=== PATIENT | male | born 1970 | race Caucasian/White ===

== ENCOUNTER 2017-12-22 11:43 | Inpatient (IN) | payer OTHER ==
[2017-12-22 12:14] VITALS: BMI 20.2
[2017-12-22] MEDS ORDERED: MELATONIN 5 MG TABLETS PO PRN (22:00)
--- NOTE | 2017-12-22 22:49 | HP ---
CIWA Score - CIWA Score Nausea/Vomitin Muscle Tremors: 5 Anxiety: 5 Agitation: 5 Paroxysmal Sweats: 3 Orientation: 3-Disoriented Date>2 days Tacttile Disturbances: 3-Moderate Itch/Numb/Burn Auditory Disturbances: 0-None Visual Disturbances: 0-None Headache: 0-None Present CIWA-Ar Total Score: 27 Admission ROS S - HPI Chief Complaint: C/O WITHDRAWAL SX'S. SEEKING DETOX FOR ALCOHOL Allergies/Adverse Reactions: Allergies Allergy/AdvReac Type Severity Reaction Status Date / Time No Known Allergies Allergy Verified 12/22/17 20:34 History of Present Illness: 47 Y.O. MALE WITH ALCOHOLISM HERE FOR DETOX. CLIENT WAS SENT FROM [facility] AFTER BEING BROUGHT THEIR BY THE POLICE FOR ALTERED MENTAL STATUS. CLIENT HAS SINCE BEEN MEDICALLY CLEARED AND SENT FOR DETOX. HE PRESENTS A/O X3 , HAD TO BE REMINDED OF THE DATE. THIS IS CLIENTS FIRST TIME HERE BUT HE IS KNOWN TO OTHER INPATIENT DETOX/ REHAB SERVICES. REPORTS LAST BEING A FEW YEARS AGO. HE IS PRESENTLY HOMELESS. REPORTS LONGEST CLEAN TIME 10 YEARS. DENIES HX/O SEIZURES, AHV, SI/HI. PMHX:DENIES PSYCH: DENIES WILL DRAW AMMONIA LEVEL ED Treatment Course - LABORATORY CBC & Chemistry Diagram: 12/22/17 20:05 12/22/17 20:05 - ADDITIONAL ORDERS Additional order review: Laboratory Results 12/22/17 12/22/17 12/22/17 20:05 20:05 20:05 Sodium 140 Potassium 4.1 Chloride 101 Carbon Dioxide 23 Anion Gap 16 BUN 7 Creatinine 1.1 Creat Clearance w eGFR > 60 Random Glucose 89 Calcium 9.0 Total Bilirubin 0.9 AST 41 H ALT 45 Alkaline Phosphatase 91 Total Protein 7.5 Albumin 4.1 Urine Color Sonya Urine Appearance Cloudy Urine pH 5.0 Ur Specific [place] 1.016 Urine Protein 2+ H Urine Glucose (UA) Negative Urine Ketones Negative Urine Blood 1+ H Urine Nitrite Negative Urine Bilirubin Negative Urine Urobilinogen Negative Ur Leukocyte Esterase Negative Urine WBC (Auto) 3 Urine RBC (Auto) 1 Ur Epithelial Cells Rare Hyaline Casts 43 Urine Mucus Few Opiates Screen Negative Methadone Screen Negative Barbiturate Screen Negative Phencyclidine Screen Negative Ur Amphetamines Screen Negative MDMA (Ecstasy) Screen Negative Benzodiazepines Screen Positive Cocaine Screen Negative U Marijuana (THC) Screen Negative 12/22/17 20:05 RBC 4.25 MCV 98.3 H MCHC 33.3 RDW 15.0 MPV 8.0 Neutrophils % 86.5 H Lymphocytes % 6.7 L Monocytes % 5.9 Eosinophils % 0.0 Basophils % 0.9 <Charlie Blanton - Last Filed: 12/22/17 21:25> - LABORATORY CBC & Chemistry Diagram: 12/22/17 20:05 12/22/17 20:05 <Luisa Purdy - Last Filed: 12/22/17 21:49> Medical Decision Making - Medical Decision Making 12/22/17 19:49 discheleved 47 yo male found drinking water from a lawn spicket and police were called -he is requesting etoh detox 12/22/17 21:46 I spoke with Farrukh winters strand buncher fine wire at [facility] and he agreed that the pt can be sent to [facility] imp alcoholism <Luisa Purdy - Last Filed: 12/22/17 21:49> Exam Limitations: No Limitations - Ebola screening Have you traveled outside of the country in the last 21 days: No Have you had contact with anyone from an Ebola affected area: No Have you been sick,other than usual withdrawal symptoms: No Do you have a fever: No - Review of Systems Constitutional: Chills, Loss of Appetite, Night Sweats EENT: reports: Dental Problems (MISSING TEETH) Respiratory: reports: No Symptoms reported Cardiac: reports: No Symptoms Reported GI: reports: Nausea, Poor Appetite, Vomiting : reports: No Symptoms Reported Musculoskeletal: reports: No Symptoms Reported Integumentary: reports: No Symptoms Reported Neuro: reports: No Symptoms reported Endocrine: reports: No Symptoms Reported Hematology: reports: No Symptoms Reported Psychiatric: reports: Anxious, Depressed Other Systems: Reviewed and Negative Patient History - Patient Medical History Hx Anemia: No Hx Asthma: No Hx Chronic Obstructive Pulmonary Disease (COPD): No Hx Cancer: No Hx Cardiac Disorders: No Hx Congestive Heart Failure: No Hx Hypertension: No Hx Hypercholesterolemia: No Hx Pacemaker: No HX Cerebrovascular Accident: No Hx Seizures: No Hx Dementia: No Hx Diabetes: No Hx Gastrointestinal Disorders: No Hx Liver Disease: No Hx Genitourinary Disorders: No Hx Sexually Transmitted Disorders: No Hx Renal Disease (ESRD): No Hx Thyroid Disease: No Hx Human Immunodeficiency Virus (HIV): No Hx Hepatitis C: No Hx Depression: No Hx Suicide Attempt: No Hx Bipolar Disorder: No Hx Schizophrenia: No Other Medical History: DENIES - Patient Surgical History Past Surgical History: Yes Other Surgical History: INGUINAL (L) HERNIA REPAIR Anesthesia Reaction: No - PPD History Previous Implant?: Yes Documented Results: Negative w/o proof Implanted On Prior [facility] Admission?: No PPD to be Administered?: Yes - Smoking Cessation Smoking history: Current every day smoker Have you smoked in the past 12 months: Yes Aproximately how many cigarettes per day: 5 Cigars Per Day: 0 Hx Chewing Tobacco Use: No Initiated information on smoking cessation: Yes 'Breaking Loose' booklet given: 12/22/17 - Substance & Tx. History Hx Alcohol Use: Yes Hx Substance Use: Yes Substance Use Type: Alcohol Hx Substance Use Treatment: Yes (APPLE) - Substances Abused BEER/VODKA Route: Oral Frequency: Daily Amount used: 1-6 PACK/1PINT Age of first use: 11 Date of Last Use: 12/22/17 Family Disease History - Family Disease History Family History: Denies Admission Physical Exam [facility] - Vital Signs Vital Signs: Vital Signs - 24 hr 12/22/17 12:09 Temperature 98.2 F Pulse Rate 91 H Respiratory 18 Rate Blood Pressure 119/85 - Physical General Appearance: Yes: Disheveled, Moderate Distress, Alcohol on Breath, Tremorous, Sweating, Anxious, Other (MALODUROUS) HEENTM: Yes: EOMI, Normocephalic, Normal Voice, WILLA, Pharynx Normal, Other ( MISSING TEETH, DISCOLORED TEETH) Respiratory: Yes: Chest Non-Tender, Lungs Clear, Normal Breath Sounds, No Respiratory Distress, No Accessory Muscle Use Neck: Yes: No masses,lesions,Nodules, Supple, Trachea in good position Breast: Yes: Breast Exam Deferred Cardiology: Yes: Regular Rhythm, S1, S2, Tachycardia Abdominal: Yes: Normal Bowel Sounds, Non Tender, Flat, Soft Genitourinary: Yes: Other (NO C/O) Back: Yes: Normal Inspection Musculoskeletal: Yes: full range of Motion, Gait Steady, Other (TREMORS) Extremities: Yes: Normal Capillary Refill, Normal Range of Motion, Non-Tender, Tremors Neurological: Yes: Alert, Motor Strength 5/5, Disoriented (TO DATE) Integumentary: Yes: Warm, Other (FLUSHED) Lymphatic: Yes: Within Normal Limits - Diagnostic (1) Alcohol dependence with uncomplicated withdrawal Current Visit: Yes Status: Acute (2) Nicotine dependence Current Visit: Yes Status: Chronic Qualifiers: Nicotine product type: cigarettes Substance use status: uncomplicated Qualified Code(s): F17.210 - Nicotine dependence, cigarettes, uncomplicated (3) Substance induced mood disorder Current Visit: Yes Status: Suspected (4) Homeless Current Visit: Yes Status: Chronic Cleared for Admission BHS - Detox or Rehab [facility] Level of Care: Medically Managed Detox Regimen/Protocol: Librium Claeared for Rehab Admission: No [facility]HS Breath Alcohol Content Breath Alcohol Content: 0.309 Vital Signs - Vital Signs Vital Signs Refused: Yes Temperature: 99.3 F Temperature Source: Oral Pulse Rate: 98 Respiratory Rate: 18 Blood Pressure: 116/76 BP Location: Left Arm Blood Pressure Position: Sitting - Height Height: 5 ft 9 in - Weight Weight: 62.142 kg Weight Measurement Method: Standing Scale Body Mass Index (BMI): 20.2 - Bowel Function Bowel Movement: No Urine Drug Screen - Control Is Test Valid: Yes - Results Drug Screen Negative: No Urine Drug Screen Results: BZO-Benzodiazepines
[2017-12-22] MEDS ORDERED: MAG HYDROX/AL HYDROX/SIMETH 30 ML UNIT-DOSE CUP PO PRN (23:06)
[2017-12-22] MEDS ORDERED: MAGNESIUM HYDROX 2400MG/30ML ORAL SUSPENSION 30 ML CUP PO PRN (23:06)
[2017-12-22] MEDS ORDERED: P-EPHED 60MG/TRIPROLIDI 2.5MG TABLET PO PRN (23:06)
[2017-12-22] MEDS ORDERED: ACETAMINOPHEN 325 MG TABLET (FP) PO PRN (23:06)
[2017-12-22] MEDS ORDERED: MENTHOL/PHENOL 1 EACH UD MM PRN (23:06)
[2017-12-22] MEDS ORDERED: IBUPROFEN 400 MG TABLET (FP) PO PRN (23:06)
[2017-12-22] MEDS ORDERED: chlordiazePOXIDE HCL 25 MG CAPSULE PO PRN (23:06)
[2017-12-22] MEDS ORDERED: hydrOXYzine PAMOATE 50 MG CAPSULE (FP) PO PRN (23:06)
[2017-12-22] MEDS ORDERED: guaiFENesin/D-METHORPHAN HB 10 ML UNIT-DOSE CUPS PO PRN (23:06)
[2017-12-22] MEDS ORDERED: MAGNESIUM CITRATE 300 ML BOTTLE PO PRN (23:06)
[2017-12-22] MEDS ORDERED: NICOTINE POLACRILEX 2 MG GUM BC PRN (23:06)
[2017-12-22] MEDS: chlordiazePOXIDE HCL 25 MG CAPSULE PO SCH (23:43)
[2017-12-23] MEDS: chlordiazePOXIDE HCL 25 MG CAPSULE PO SCH ×4 (05:37→22:32)
--- NOTE | 2017-12-23 09:34 | CONSULT ---
[facility] Psychiatric Consult - Data Date of interview: 12/23/17 Admission source: [facility] Identifying data: This is a 47 years old male, single, unemployed, homeless, with no income, with nom psychiatric hospitalization history, woth long history of Alcohol and Nicotine dependence, reportsing withdrawal symptoms and seeking detox. Substance Abuse History: - Smoking Cessation. Smoking history: Current every day smoker. Have you smoked in the past 12 months: Yes. Aproximately how many cigarettes per day: 5. Cigars Per Day: 0. Hx Chewing Tobacco Use: No. Initiated information on smoking cessation: Yes. 'Breaking Loose' booklet given : 12/22/17. - Substance & Tx. History. Hx Alcohol Use: Yes. Hx Substance Use : Yes. Substance Use Type: Alcohol. Hx Substance Use Treatment: Yes (APPLE) . - Substances Abused. BEER/VODKA. Route: Oral. Frequency: Daily. Amount used: 1-6 PACK/1PINT. Age of first use: 11. Date of Last Use: 12/22/17 Medical History: Denies significant medical problems Psychiatric History: Reports history of depression and anxiety Physical/Sexual Abuse/Trauma History: Denies Additional Comment: Observation. Detox Unit Care Protocol Mental Status Exam - Mental Status Exam Alert and Oriented to: Person Cognitive Function: Fair Patient Appearance: Unkempt Mood: Sad Affect: Flat Patient Behavior: Sedated Speech Pattern: Delayed Voice Loudness: Mildly Soft/Quiet Thought Process: Goal Oriented Thought Disorder: Being Controlled Hallucinations: Denies Suicidal Ideation: Denies Homicidal Ideation: Denies Insight/Judgement: Fair Sleep: Difficulty falling asleep Appetite: Fair Muscle strength/Tone: Mild Hypotonicity Gait/Station: Shuffling Additional Comments: Observation. Detox Unit Care Protocol Psychiatric Findings - Problem List ([place] 1, 2,3) (1) Alcohol dependence with uncomplicated withdrawal Current Visit: Yes Status: Acute (2) Nicotine dependence Current Visit: Yes Status: Chronic Qualifiers: Nicotine product type: cigarettes Substance use status: uncomplicated Qualified Code(s): F17.210 - Nicotine dependence, cigarettes, uncomplicated (3) Substance induced mood disorder Current Visit: Yes Status: Suspected - Initial Treatment Plan Initial Treatment Plan: Observation. Detox Unit Care Protocol
--- NOTE | 2017-12-23 09:36 | PN ---
Xital Signs Vital Signs: Vital Signs - 24 hr 12/22/17 12/22/17 12/23/17 12:09 23:06 00:04 Temperature 98.2 F 99.3 F 98.8 F Pulse Rate 91 H 98 H 93 H Respiratory 18 18 18 Rate Blood Pressure 119/85 116/76 116/72 12/23/17 12/23/17 12/23/17 00:26 03:30 06:39 Temperature 98.4 F Pulse Rate 83 Respiratory 18 18 18 Rate Blood Pressure 129/84 12/23/17 09:04 Temperature 98.4 F Pulse Rate 79 Respiratory 20 Rate Blood Pressure 120/68 CIWA Score - CIWA Score Nausea/Vomitin Muscle Tremors: 5 Anxiety: 5 Agitation: 5 Paroxysmal Sweats: 3 Orientation: 3-Disoriented Date>2 days Tacttile Disturbances: 3-Moderate Itch/Numb/Burn Auditory Disturbances: 0-None Visual Disturbances: 0-None Headache: 0-None Present CIWA-Ar Total Score: 27 Medical/Surgical History - Patient Medical History Hx Anemia: No Hx Asthma: No Hx Chronic Obstructive Pulmonary Disease (COPD): No Hx Cancer: No Hx Cardiac Disorders: No Hx Congestive Heart Failure: No Hx Hypertension: No Hx Hypercholesterolemia: No Hx Pacemaker: No HX Cerebrovascular Accident: No Hx Seizures: No Hx Dementia: No Hx Diabetes: No Hx Gastrointestinal Disorders: No Hx Liver Disease: No Hx Genitourinary Disorders: No Hx Sexually Transmitted Disorders: No Hx Renal Disease (ESRD): No Hx Thyroid Disease: No Hx Human Immunodeficiency Virus (HIV): No Hx Hepatitis C: No Hx Depression: Yes Hx Suicide Attempt: No Hx Bipolar Disorder: No Hx Schizophrenia: No Other Medical History: DENIES - Patient Surgical History Past Surgical History: Yes Hx Neurologic Surgery: No Hx Cataract Extraction: No Hx Cardiac Surgery: No Hx Lung Surgery: No Hx Breast Surgery: No Hx Breast Biopsy: No Hx Abdominal Surgery: No Hx Appendectomy: No Hx Cholecystectomy: No Hx Genitourinary Surgery: No Hx Section: No Hx Orthopedic Surgery: No Other Surgical History: INGUINAL (L) HERNIA REPAIR Anesthesia Reaction: No - Substances Abused BEER/VODKA Route: Oral Frequency: Daily Amount used: 1-6 PACK/1PINT Age of first use: 11 Date of Last Use: 12/22/17 BHS Breath Alcohol Content Breath Alcohol Content: 0.309 Urine Drug Screen - Results Drug Screen Negative: No Urine Drug Screen Results: BZO-Benzodiazepines
[2017-12-23] MEDS: NICOTINE 14 MG/24 HOURS TOPICAL PATCH TD SCH (10:13)
[2017-12-23] MEDS: PRENATAL VITAMINS W/ FOLIC ACID TABLET (FP) PO SCH (10:14)
--- NOTE | 2017-12-23 10:44 | PN ---
S CIWA - CIWA Score Nausea/Vomitin Muscle Tremors: 3 Anxiety: 2 Agitation: 2 Paroxysmal Sweats: 1-Minimal Palms Moist Orientation: 0-Oriented Tacttile Disturbances: 1-Very Mild Itch/Numbness Auditory Disturbances: 1-Very Mild Visual Disturbances: 0-None Headache: 2-Mild CIWA-Ar Total Score: 15 BHS Progress Note (SOAP) Subjective: alert,irritable,anxious,interrupted sleep,tremor Objective: 12/23/17 10:41 Vital Signs Temperature 98.4 F 12/23/17 09:04 Pulse Rate 79 12/23/17 09:04 Respiratory Rate 20 12/23/17 09:04 Blood Pressure 120/68 12/23/17 09:04 O2 Sat by Pulse Oximetry (%) Laboratory Last Values Ammonia 62.4 umol/L (11-32) H 12/23/17 07:00 Assessment: 12/23/17 10:42 withdrawal symptom Plan: continue detox,lactulose 20 grams po tid,repeat cmp,inr,ammonia level in am
[2017-12-23] MEDS: LACTULOSE 20 GM/30 ML UDC (FOR ORAL USE ONLY) PO SCH ×2 (14:53→22:32)
[2017-12-23] MEDS: LOPERAMIDE HCL 2 MG CAPSULE PO PRN ×2 (14:53→20:45)
--- NOTE | 2017-12-23 15:03 | EKG ---
Test Reason : Blood Pressure : / mmHG Vent. Rate : 091 BPM Atrial Rate : 091 BPM P-R Int : 152 ms QRS Dur : 086 ms QT Int : 356 ms P-R-T Axes : 078 079 062 degrees QTc Int : 437 ms NORMAL SINUS RHYTHM NORMAL ECG NO PREVIOUS ECGS AVAILABLE Confirmed by EDELMIRA WATSON, BALWINDER ([id number]) on 12/23/2017 3:03:10 PM Referred By: Confirmed By:BALWINDER HICKEY MD
[2017-12-23] MEDS: THIAMINE HCL 100 MG TABLET (FP) PO SCH (22:33)
[2017-12-24] MEDS: LACTULOSE 20 GM/30 ML UDC (FOR ORAL USE ONLY) PO SCH ×3 (06:06→22:01)
[2017-12-24] MEDS: chlordiazePOXIDE HCL 25 MG CAPSULE PO SCH ×3 (06:06→17:35)
[2017-12-24 10:10] LABS: HEMATOCRIT 41.3 % (35.4-49); HEMOGLOBIN 14.1 GM/dL (11.7-16.9); MCH 33.5 pg (25.7-33.7); MCHC 34.1 g/dl (32.0-35.9); MEAN CELL VOLUME 98.2 fl (80-96); MEAN PLT VOLUME 8.9 fl (7.5-11.1); PLATELET COUNT 231 K/MM3 (134-434); RBC 4.21 M/mm3 (4.00-5.60); RDW 14.9 % (11.9-15.9); WHITE BLOOD COUNT 6.1 K/mm3 (4.0-10.0)
[2017-12-24 10:38] LABS: INR 0.9 (0.83-1.09); PROTHROMBIN TIME (PATIENT) 10.2 SEC (9.7-13.0)
[2017-12-24] MEDS: PRENATAL VITAMINS W/ FOLIC ACID TABLET (FP) PO SCH (10:42)
[2017-12-24] MEDS: NICOTINE 14 MG/24 HOURS TOPICAL PATCH TD SCH (10:43)
[2017-12-24 11:40] LABS: RPR REACTIVE 1:2 (NONREACTIVE)
[2017-12-24 12:30] LABS: CHLORIDE 107 mmol/L (98-107); POTASSIUM 3.8 mmol/L (3.5-5.1); SODIUM 144 mmol/L (136-145)
[2017-12-24 12:55] LABS: ALBUMIN 3.7 g/dl (3.4-5.0); ALK PHOS 81 U/L (45-117); ANION GAP 10 MMOL/L (8-16); BILIRUBIN,TOTAL 1.1 mg/dL (0.2-1.0); BLOOD UREA NITROGEN 9 mg/dL (7-18); CO2 27 mmol/L (21-32); CREATININE 0.6 mg/dL (0.7-1.3); GLUCOSE,RANDOM 84 mg/dL (74-106); SGOT/AST 42 U/L (15-37); SGPT/ALT 43 U/L (12-78); TOT PROT 6.9 g/dl (6.4-8.2)
[2017-12-24 13:20] LABS: TREPONEMA ANTIBODY REACTIVE (NONREACTIVE)
--- NOTE | 2017-12-24 13:55 | PN ---
S CIWA - CIWA Score Nausea/Vomitin Muscle Tremors: 3 Anxiety: 3 Agitation: 2 Paroxysmal Sweats: 1-Minimal Palms Moist Orientation: 0-Oriented Tacttile Disturbances: 1-Very Mild Itch/Numbness Auditory Disturbances: 1-Very Mild Visual Disturbances: 0-None Headache: 2-Mild CIWA-Ar Total Score: 16 BHS Progress Note (SOAP) Subjective: alert,irritable,anxious,interrupted sleep,tremor,poor oral intake Objective: 12/24/17 13:51 Vital Signs Temperature 98.1 F 12/24/17 13:22 Pulse Rate 93 H 12/24/17 13:22 Respiratory Rate 18 12/24/17 13:22 Blood Pressure 111/85 12/24/17 13:22 O2 Sat by Pulse Oximetry (%) Assessment: 12/24/17 13:54 withdrawal symptom Plan: continue detox,high ammonia level on lactulose,history of syphilis treated before,
[2017-12-24] MEDS: THIAMINE HCL 100 MG TABLET (FP) PO SCH (22:01)
[2017-12-24] MEDS: chlordiazePOXIDE 5 MG CAPSULE PO SCH (22:01)
[2017-12-25] MEDS: LACTULOSE 20 GM/30 ML UDC (FOR ORAL USE ONLY) PO SCH ×3 (05:14→22:09)
[2017-12-25] MEDS: chlordiazePOXIDE 5 MG CAPSULE PO SCH ×3 (05:14→17:39)
[2017-12-25] MEDS: PRENATAL VITAMINS W/ FOLIC ACID TABLET (FP) PO SCH (10:37)
[2017-12-25] MEDS: NICOTINE 14 MG/24 HOURS TOPICAL PATCH TD SCH (10:37)
--- NOTE | 2017-12-25 12:26 | PN ---
S Progress Note (SOAP) Subjective: alert,irritable,anxious,interrupted sleep Objective: 12/25/17 12:25 Vital Signs Temperature 98.4 F 12/25/17 11:27 Pulse Rate 79 12/25/17 11:27 Respiratory Rate 20 12/25/17 11:27 Blood Pressure 108/57 12/25/17 11:27 O2 Sat by Pulse Oximetry (%) Assessment: 12/25/17 12:26 withdrawal symptom Plan: continue detox,discharge in am
[2017-12-25] MEDS: THIAMINE HCL 100 MG TABLET (FP) PO SCH (22:07)
[2017-12-25] MEDS: chlordiazePOXIDE HCL 10 MG CAPSULE PO SCH (22:07)
[2017-12-26] MEDS: chlordiazePOXIDE HCL 10 MG CAPSULE PO SCH ×2 (06:24→10:26)
[2017-12-26] MEDS: LACTULOSE 20 GM/30 ML UDC (FOR ORAL USE ONLY) PO SCH (06:25)
[2017-12-26 09:20] VITALS: BP 114/76; PULSE 75; TEMP 97.5
[2017-12-26] MEDS: NICOTINE 14 MG/24 HOURS TOPICAL PATCH TD SCH (10:25)
[2017-12-26] MEDS: PRENATAL VITAMINS W/ FOLIC ACID TABLET (FP) PO SCH (10:25)
--- NOTE | 2017-12-26 10:31 | DS ---
[facility] Detox Discharge Summary Admission Date: 12/22/17 Discharge Date: 12/26/17 - History Present History: Alcohol Dependence Additional Comments: 47 years old male admitted on 12/22/17 for alcohol withdrawal sx completed alcohol detox regimen tolerated well denies alcohol withdrawal sx alert oriented x 3 no acute distress aftercare [facility] - Physical Exam Results Vital Signs: Vital Signs Temperature 97.5 F L 12/26/17 09:18 Pulse Rate 75 12/26/17 09:18 Respiratory Rate 18 12/26/17 09:18 Blood Pressure 114/76 12/26/17 09:18 O2 Sat by Pulse Oximetry (%) Pertinent Admission Physical Exam Findings: alcohol withdrawal sx Vital Signs Temperature 97.5 F L 12/26/17 09:18 Pulse Rate 75 12/26/17 09:18 Respiratory Rate 18 12/26/17 09:18 Blood Pressure 114/76 12/26/17 09:18 O2 Sat by Pulse Oximetry (%) Laboratory Last Values WBC 6.1 K/mm3 (4.0-10.0) 12/24/17 07:30 RBC 4.21 M/mm3 (4.00-5.60) 12/24/17 07:30 Hgb 14.1 GM/dL (11.7-16.9) 12/24/17 07:30 Hct 41.3 % (35.4-49) 12/24/17 07:30 MCV 98.2 fl (80-96) H 12/24/17 07:30 MCH 33.5 pg (25.7-33.7) 12/24/17 07:30 MCHC 34.1 g/dl (32.0-35.9) 12/24/17 07:30 RDW 14.9 % (11.9-15.9) 12/24/17 07:30 Plt Count 231 K/MM3 (134-434) D 12/24/17 07:30 MPV 8.9 fl (7.5-11.1) D 12/24/17 07:30 PT with INR 10.20 SEC (9.7-13.0) 12/24/17 07:30 INR 0.90 (0.83-1.09) 12/24/17 07:30 Sodium 144 mmol/L (136-145) 12/24/17 07:30 Potassium 3.8 mmol/L (3.5-5.1) 12/24/17 07:30 Chloride 107 mmol/L (98-107) 12/24/17 07:30 Carbon Dioxide 27 mmol/L (21-32) 12/24/17 07:30 Anion Gap 10 MMOL/L (8-16) 12/24/17 07:30 BUN 9 mg/dL (7-18) 12/24/17 07:30 Creatinine 0.6 mg/dL (0.7-1.3) L 12/24/17 07:30 Creat Clearance w eGFR > 60 (>60) 12/24/17 07:30 Random Glucose 84 mg/dL (74-106) 12/24/17 07:30 Calcium 9.0 mg/dL (8.5-10.1) 12/24/17 07:30 Total Bilirubin 1.1 mg/dL (0.2-1.0) H 12/24/17 07:30 AST 42 U/L (15-37) H 12/24/17 07:30 ALT 43 U/L (12-78) 12/24/17 07:30 Alkaline Phosphatase 81 U/L (45-117) D 12/24/17 07:30 Ammonia 53.7 umol/L (11-32) H 12/24/17 07:30 Total Protein 6.9 g/dl (6.4-8.2) 12/24/17 07:30 Albumin 3.7 g/dl (3.4-5.0) 12/24/17 07:30 RPR Titer Reactive 1:2 (NONREACTIVE) H 12/23/17 06:10 T.pallidum Ab (MHA) Reactive (NONREACTIVE) 12/23/17 06:10 lab noted health teaching regarding alcohol induced ammonia serum level and liver enzyme level discuss safe sex - Treatment Hospital Course: Detox Protocol Followed, Detoxed Safely, Responded well, Discharged Condition Good, Rehab Referral Accepted Patient has Accepted a Rehab Referral to: [facility] - Medication Discharge Medications: Ambulatory Orders NK [No Known Home Medication] 12/22/17 - Diagnosis (1) Syphilis Current Visit: No Status: Chronic (2) Alcohol dependence with uncomplicated withdrawal Current Visit: Yes Status: Acute (3) Nicotine dependence Current Visit: Yes Status: Acute Qualifiers: Nicotine product type: cigarettes Substance use status: in withdrawal Qualified Code(s): F17.213 - Nicotine dependence, cigarettes, with withdrawal - AMA Did Patient Leave Against Medical Advice: No
== END 2017-12-26 12:46 | disposition other institution (70) | DRG 775 ==
LOC: YASAS 11:43 → Y6N 23:12
PROC: HZ2ZZZZ Detoxification Services for Substance Abuse Treatment (ICD-10-PCS; principal; 2017-12-22)
DX: F10.230 Alcohol dependence with withdrawal, uncomplicated (principal); F17.210 Nicotine dependence, cigarettes, uncomplicated; F19.24 Other psychoactive substance dependence with psychoactive substance-induced mood disorder; R79.89 Other specified abnormal findings of blood chemistry; Z86.19 Personal history of other infectious and parasitic diseases; Z59.0 Homelessness
CPT/HCPCS: 36415; 80053; 82140; 85027; 85610; 86593; 86780; 93005; 93010

== ENCOUNTER 2017-12-26 12:56 | Inpatient (IN) | payer OTHER ==
[2017-12-26 13:30] VITALS: BMI 20.6
[2017-12-26] MEDS ORDERED: ACETAMINOPHEN 325 MG TABLET (FP) PO PRN (13:48)
[2017-12-26] MEDS ORDERED: guaiFENesin/D-METHORPHAN HB 10 ML UNIT-DOSE CUPS PO PRN (13:48)
[2017-12-26] MEDS ORDERED: P-EPHED 60MG/TRIPROLIDI 2.5MG TABLET PO PRN (13:48)
[2017-12-26] MEDS ORDERED: MAG HYDROX/AL HYDROX/SIMETH 30 ML UNIT-DOSE CUP PO PRN (13:48)
[2017-12-26] MEDS ORDERED: LOPERAMIDE HCL 2 MG CAPSULE PO PRN (13:48)
[2017-12-26] MEDS ORDERED: MAGNESIUM CITRATE 300 ML BOTTLE PO PRN (13:48)
[2017-12-26] MEDS ORDERED: MAGNESIUM HYDROX 2400MG/30ML ORAL SUSPENSION 30 ML CUP PO PRN (13:48)
[2017-12-26] MEDS ORDERED: IBUPROFEN 400 MG TABLET (FP) PO PRN (13:48)
[2017-12-26] MEDS ORDERED: hydrOXYzine PAMOATE 50 MG CAPSULE (FP) PO PRN (13:48)
[2017-12-26] MEDS ORDERED: MENTHOL/PHENOL 1 EACH UD MM PRN (13:48)
--- NOTE | 2017-12-26 13:48 | HP ---
TRUONG WATSON Rehab Assess/Revision - Admission History Admitted to Rehab from: [facility] [place] Date of Admission to Rehab: 12/26/17 - Vital signs Vital Signs: Vital Signs Period Temp Pulse Resp BP Sys/Mars Pulse Ox Last 24 Hr 98.3 F 81 19 97/72 - Findings Detox History & Physical reviewed: Yes Concur with findings: Yes Comments/Additional Findings: transferred from detox to rehab admission as per protocol
[2017-12-26] MEDS: THIAMINE HCL 100 MG TABLET (FP) PO SCH (21:56)
[2017-12-26] MEDS: MELATONIN 5 MG TABLETS PO PRN (21:57)
[2017-12-27] MEDS: PRENATAL VITAMINS W/ FOLIC ACID TABLET (FP) PO SCH (10:08)
[2017-12-27] MEDS: NICOTINE 14 MG/24 HOURS TOPICAL PATCH TD SCH (10:09)
[2017-12-27] MEDS: THIAMINE HCL 100 MG TABLET (FP) PO SCH (21:13)
[2017-12-27] MEDS: MELATONIN 5 MG TABLETS PO PRN (21:13)
[2017-12-28] MEDS: NICOTINE 14 MG/24 HOURS TOPICAL PATCH TD SCH (09:49)
[2017-12-28] MEDS: PRENATAL VITAMINS W/ FOLIC ACID TABLET (FP) PO SCH (09:49)
[2017-12-28] MEDS: NICOTINE POLACRILEX 2 MG GUM BUC PRN ×2 (09:50→15:38)
[2017-12-28] MEDS: THIAMINE HCL 100 MG TABLET (FP) PO SCH (21:53)
[2017-12-28] MEDS: MELATONIN 5 MG TABLETS PO PRN (21:53)
[2017-12-29] MEDS: PRENATAL VITAMINS W/ FOLIC ACID TABLET (FP) PO SCH (10:04)
[2017-12-29] MEDS: NICOTINE 14 MG/24 HOURS TOPICAL PATCH TD SCH (10:05)
[2017-12-29] MEDS: NICOTINE POLACRILEX 2 MG GUM BUC PRN ×2 (10:06→14:06)
[2017-12-29] MEDS ORDERED: NICOTINE 14 MG/24 HOURS TOPICAL PATCH TD SCH (13:56)
--- NOTE | 2017-12-29 13:58 | PN ---
S Progress Note Note: Vital Signs Temperature 97.0 F L 12/29/17 07:13 Pulse Rate 70 12/29/17 07:13 Respiratory Rate 18 12/29/17 07:13 Blood Pressure 104/70 12/29/17 07:13 O2 Sat by Pulse Oximetry (%) Patient currently on nicotine patch 14 mg requested increase in dose d/t no improve in nicotine craving. Dose adjusted to 21mg patch. continue to monitor
--- NOTE | 2017-12-29 16:26 | HP ---
Psychiatrist Admission - Data Date of interview: 12/29/17 Admission source: Transfer from [address] [place] [address]. Identifying data: First admission to [facility] for this 47 y/o male, who underwent detoxification treatment for alcohol dependence and transferred to [address] for rehabilitation.Patient is single without dependents, homeless,unemployed and deprived of income. Medical History: Patient endorses good general health.Noted history of left inguinal herniorraphy. Psychiatric History: Patient admits to a remote history of psychiatric hospitalizationaroung age 12-14.Names of facilities not recalled.Initialled diagnosed with ADHD and treated with psychostimulants.Dropped out of psychiatric care during his adolescence.Never re-admitted to a mental institution, as per report.No contact with psychiatrists.Mr Madrigal denies histroy of suicide attempts. Physical/Sexual Abuse/Trauma History: Patient denies. Additional Comment: Substance abuse profile is confirmed by patient in this session.Details in current [facility] report : Smoking history: Current every day smoker. Have you smoked in the past 12 months: Yes. Aproximately how many cigarettes per day: 5. Cigars Per Day: 0. Hx Chewing Tobacco Use: No. Initiated information on smoking cessation: Yes. 'Breaking Loose' booklet given : 12/22/17. - Substance & Tx. History. Hx Alcohol Use: Yes. Hx Substance Use : Yes. Substance Use Type: Alcohol. Hx Substance Use Treatment: Yes (APPLE) . - Substances Abused. BEER/VODKA. Route: Oral. Frequency: Daily. Amount used: 1-6 PACK/1PINT. Age of first use: 11. Date of Last Use: . Urine Drug Screen Results: BZO-Benzodiazepines.Noted on admission to [address] [place] [address]. Vital Signs: Vital Signs - 24 hr 12/29/17 12/29/17 00:30 07:13 Temperature 97.0 F L Pulse Rate 70 Respiratory 16 18 Rate Blood Pressure 104/70 Allergies/Adverse Reactions: Allergies Allergy/AdvReac Type Severity Reaction Status Date / Time No Known Allergies Allergy Verified 12/22/17 20:34 - Substance Abuse/Tx History Hx Alcohol Use: Yes Hx Substance Use: Yes Substance Use Type: Alcohol (consumes 1/2 pint to one pint of vodka daily + six beers X 24 oz. Onset of abuse at age 11.) Hx Substance Use Treatment: Yes Mental Status Exam - Mental Status Exam Alert and Oriented to: Time, Place, Person Cognitive Function: Good Patient Appearance: Well Groomed Mood: Euthymic Affect: Appropriate, Normal Range Patient Behavior: Appropriate, Cooperative Speech Pattern: Clear, Appropriate Voice Loudness: Normal Thought Process: Intact, Goal Oriented Thought Disorder: Not Present Hallucinations: Denies Suicidal Ideation: Denies Homicidal Ideation: Denies Insight/Judgement: Fair Sleep: Poorly, Difficulty falling asleep Appetite: Good Muscle strength/Tone: Normal Gait/Station: Normal Psychiatric Findings - Problem List ([place] 1, 2,3) (1) Alcohol dependence Current Visit: Yes Status: Acute (2) Nicotine dependence Current Visit: Yes Status: Acute Qualifiers: Nicotine product type: cigarettes Substance use status: in withdrawal Qualified Code(s): F17.213 - Nicotine dependence, cigarettes, with withdrawal (3) Insomnia Current Visit: Yes Status: Acute - Initial Treatment Plan Initial Treatment Plan: Psychoeducation.Sleep hygiene.Supportive + group therapy.Trazodone 100 mg po hs (patient's specific request).Made aware of the risk of priapism.Mr Madrigal agrees to this careplan.Observation.
[2017-12-29] MEDS: THIAMINE HCL 100 MG TABLET (FP) PO SCH (21:27)
[2017-12-29] MEDS: traZODone HCL 100 MG TABLET (FP) PO SCH (21:27)
[2017-12-30] MEDS: NICOTINE POLACRILEX 2 MG GUM BUC PRN ×2 (06:10→14:35)
[2017-12-30] MEDS: NICOTINE 21 MG/24 HOURS TOPICAL PATCH TD SCH (09:43)
[2017-12-30] MEDS: PRENATAL VITAMINS W/ FOLIC ACID TABLET (FP) PO SCH (09:43)
--- NOTE | 2017-12-30 18:40 | PN ---
S Progress Note Note: Vital Signs Temperature 97.7 F 12/30/17 06:52 Pulse Rate 65 12/30/17 06:52 Respiratory Rate 18 12/30/17 06:52 Blood Pressure 103/65 12/30/17 06:52 O2 Sat by Pulse Oximetry (%) elevated ammonia levels 53.7, asymptomatic start lactulose TID repeat ammonia 01/01/18 increase fluids continue to monitor
[2017-12-30] MEDS: traZODone HCL 100 MG TABLET (FP) PO SCH (21:26)
[2017-12-30] MEDS: THIAMINE HCL 100 MG TABLET (FP) PO SCH (21:26)
[2017-12-30] MEDS: LACTULOSE 20 GM/30 ML UDC (FOR ORAL USE ONLY) PO SCH (21:27)
[2017-12-31] MEDS: NICOTINE 21 MG/24 HOURS TOPICAL PATCH TD SCH (09:56)
[2017-12-31] MEDS: LACTULOSE 20 GM/30 ML UDC (FOR ORAL USE ONLY) PO SCH ×4 (09:56→22:03)
[2017-12-31] MEDS: PRENATAL VITAMINS W/ FOLIC ACID TABLET (FP) PO SCH (09:57)
[2017-12-31] MEDS: NICOTINE POLACRILEX 2 MG GUM BUC PRN ×2 (10:02→12:48)
--- NOTE | 2017-12-31 15:37 | PN ---
[facility] Progress Note Note: Vital Signs Temperature 97.3 F L 12/31/17 07:14 Pulse Rate 85 12/31/17 07:14 Respiratory Rate 18 12/31/17 07:14 Blood Pressure 93/62 12/31/17 07:14 O2 Sat by Pulse Oximetry (%) patient c/o of rash on the left arm after he had blood drawn yesterday Patient Aox3 no distress no adventitious break sounds skin intact, + mild erythematous rash on left anticubital fossa full ROM ambulating in the unit allergic dermatitis Plan: TP hydrocortise increases fluids continue to monitor
[2017-12-31] MEDS: THIAMINE HCL 100 MG TABLET (FP) PO SCH (22:03)
[2017-12-31] MEDS: traZODone HCL 100 MG TABLET (FP) PO SCH (22:03)
[2017-12-31] MEDS: HYDROCORTISONE 1% TOPICAL OINT 30 GM TUBE TP PRN (22:04)
[2018-01-01] MEDS: PRENATAL VITAMINS W/ FOLIC ACID TABLET (FP) PO SCH (10:11)
[2018-01-01] MEDS: LACTULOSE 20 GM/30 ML UDC (FOR ORAL USE ONLY) PO SCH ×4 (10:12→22:04)
[2018-01-01] MEDS: NICOTINE 21 MG/24 HOURS TOPICAL PATCH TD SCH (10:12)
[2018-01-01] MEDS: NICOTINE POLACRILEX 2 MG GUM BUC PRN ×3 (10:13→15:42)
[2018-01-01] MEDS: THIAMINE HCL 100 MG TABLET (FP) PO SCH (22:04)
[2018-01-01] MEDS: traZODone HCL 100 MG TABLET (FP) PO SCH (22:04)
--- NOTE | 2018-01-02 07:55 | PN ---
[facility] Progress Note Note: Lab Review Ammonia level on 01/01 55.4, levels are trending down from 62.4 on 12/23 to 53.7 on 12/24. He was previously on lactulose 20ml PO TID that has been discontinued. He is asymptomatic. Repeat level on 01/04
[2018-01-02] MEDS: PRENATAL VITAMINS W/ FOLIC ACID TABLET (FP) PO SCH (09:56)
[2018-01-02] MEDS: LACTULOSE 20 GM/30 ML UDC (FOR ORAL USE ONLY) PO SCH ×4 (09:56→22:16)
[2018-01-02] MEDS: NICOTINE 21 MG/24 HOURS TOPICAL PATCH TD SCH (09:56)
[2018-01-02] MEDS: NICOTINE POLACRILEX 2 MG GUM BUC PRN ×2 (09:58→12:53)
[2018-01-02] MEDS: THIAMINE HCL 100 MG TABLET (FP) PO SCH (22:16)
[2018-01-02] MEDS: MELATONIN 5 MG TABLETS PO PRN (22:16)
[2018-01-02] MEDS: traZODone HCL 100 MG TABLET (FP) PO SCH (22:16)
[2018-01-03] MEDS: NICOTINE 21 MG/24 HOURS TOPICAL PATCH TD SCH (09:44)
[2018-01-03] MEDS: LACTULOSE 20 GM/30 ML UDC (FOR ORAL USE ONLY) PO SCH ×4 (09:44→21:57)
[2018-01-03] MEDS: PRENATAL VITAMINS W/ FOLIC ACID TABLET (FP) PO SCH (09:44)
[2018-01-03] MEDS: NICOTINE POLACRILEX 2 MG GUM BUC PRN (09:45)
[2018-01-03] MEDS: HYDROCORTISONE 1% TOPICAL OINT 30 GM TUBE TP PRN (14:02)
[2018-01-03] MEDS: THIAMINE HCL 100 MG TABLET (FP) PO SCH (21:57)
[2018-01-03] MEDS: MELATONIN 5 MG TABLETS PO PRN (21:57)
[2018-01-03] MEDS: traZODone HCL 100 MG TABLET (FP) PO SCH (21:57)
[2018-01-04] MEDS: NICOTINE 21 MG/24 HOURS TOPICAL PATCH TD SCH (10:08)
[2018-01-04] MEDS: PRENATAL VITAMINS W/ FOLIC ACID TABLET (FP) PO SCH (10:08)
[2018-01-04] MEDS: LACTULOSE 20 GM/30 ML UDC (FOR ORAL USE ONLY) PO SCH ×2 (10:08→14:43)
[2018-01-04] MEDS: NICOTINE POLACRILEX 2 MG GUM BUC PRN ×2 (10:09→14:44)
--- NOTE | 2018-01-04 14:50 | PN ---
S Progress Note Note: Vital Signs Temperature 97.8 F 01/04/18 07:06 Pulse Rate 77 01/04/18 07:06 Respiratory Rate 18 01/04/18 07:06 Blood Pressure 92/59 01/04/18 07:06 O2 Sat by Pulse Oximetry (%) Laboratory Last Values Ammonia 19.48 umol/L (11-32) 01/04/18 08:30 Patient was currently treated for elevated ammonia levels. Last results 01/04/18 are WNL. Patient asymptomatic. D/c Lactulose. increase fluids Patient advise to follow up with primary care provider upon discharge Continue to monitor
[2018-01-04] MEDS: traZODone HCL 100 MG TABLET (FP) PO SCH (21:38)
[2018-01-04] MEDS: MELATONIN 5 MG TABLETS PO PRN (21:38)
[2018-01-04] MEDS: THIAMINE HCL 100 MG TABLET (FP) PO SCH (21:38)
[2018-01-05] MEDS: NICOTINE 21 MG/24 HOURS TOPICAL PATCH TD SCH (10:06)
[2018-01-05] MEDS: PRENATAL VITAMINS W/ FOLIC ACID TABLET (FP) PO SCH (10:06)
[2018-01-05] MEDS: NICOTINE POLACRILEX 2 MG GUM BUC PRN ×2 (10:08→14:09)
[2018-01-05] MEDS: THIAMINE HCL 100 MG TABLET (FP) PO SCH (22:05)
[2018-01-05] MEDS: traZODone HCL 100 MG TABLET (FP) PO SCH (22:05)
[2018-01-06] MEDS: NICOTINE 21 MG/24 HOURS TOPICAL PATCH TD SCH (10:20)
[2018-01-06] MEDS: PRENATAL VITAMINS W/ FOLIC ACID TABLET (FP) PO SCH (10:20)
[2018-01-06] MEDS: NICOTINE POLACRILEX 2 MG GUM BUC PRN ×2 (10:21→13:34)
[2018-01-06] MEDS: traZODone HCL 100 MG TABLET (FP) PO SCH (21:58)
[2018-01-06] MEDS: THIAMINE HCL 100 MG TABLET (FP) PO SCH (21:58)
[2018-01-06] MEDS: MELATONIN 5 MG TABLETS PO PRN (21:59)
[2018-01-07] MEDS: HYDROCORTISONE 1% TOPICAL OINT 30 GM TUBE TP PRN (10:15)
[2018-01-07] MEDS: NICOTINE POLACRILEX 2 MG GUM BUC PRN ×3 (10:15→17:34)
[2018-01-07] MEDS: NICOTINE 21 MG/24 HOURS TOPICAL PATCH TD SCH (10:15)
[2018-01-07] MEDS: PRENATAL VITAMINS W/ FOLIC ACID TABLET (FP) PO SCH (10:15)
[2018-01-07] MEDS: MELATONIN 5 MG TABLETS PO PRN (21:44)
[2018-01-07] MEDS: THIAMINE HCL 100 MG TABLET (FP) PO SCH (21:44)
[2018-01-07] MEDS: traZODone HCL 100 MG TABLET (FP) PO SCH (21:44)
--- NOTE | 2018-01-08 06:39 | PN ---
Psychiatric Progress Note Vital Signs: Vital Signs Period Temp Pulse Resp BP Sys/Mars Pulse Ox Last 24 Hr 98 F 90 18-18 104/70 Date of Session: 01/08/18 Chief Complaint:: Discharge Note HPI: Patient addressing Alcohol Dependence comorbid with Nicotine Dependence and Alcohol-Induced Sleep Disorder Current Medications: Active Medications Generic Name Dose Route Start Last Admin Trade Name Freq PRN Reason Stop Dose Admin Al Hydroxide/Mg Hydroxide 30 ml 12/26/17 13:48 Mylanta Oral Suspension - PO Q6H PRN DYSPEPSIA Eucalyptus/Menthol/Phenol/Sorbitol 1 each 12/26/17 13:48 Cepastat Lozenge - MM Q4H PRN SORE THROAT Guaifenesin 10 ml 12/26/17 13:48 Robitussin Dm - PO Q6H PRN COUGH Hydrocortisone 1 applic 12/31/17 15:35 01/07/18 10:15 Hytone 1% Ointment - TP 1 applic DAILY PRN Administration FOR ITCHING Hydroxyzine Pamoate 50 mg 12/26/17 13:48 Vistaril - PO Q4H PRN AGITATION Ibuprofen 400 mg 12/26/17 13:48 Motrin - PO Q6H PRN Pain Level 4-6 Loperamide HCl 4 mg 12/26/17 13:48 Imodium - PO Q6H PRN DIARRHEA Magnesium Citrate 300 ml 12/26/17 13:48 Citroma - PO Q48H PRN CONSTIPATION Magnesium Hydroxide 30 ml 12/26/17 13:48 Milk Of Magnesia - PO DAILY PRN CONSTIPATION Melatonin 5 mg 12/26/17 22:00 01/07/18 21:44 Melatonin PO 5 mg HS PRN Administration INSOMNIA Nicotine 21 mg 12/30/17 10:00 01/07/18 10:15 Nicoderm Patch - TD 21 mg DAILY PATRICIA Administration Nicotine Polacrilex 2 mg 12/26/17 13:48 01/07/18 17:34 Nicorette Gum - BUC 2 mg Q2H PRN Administration NICOTINE REPLACEMENT RX Multivit/Folic Acid/Iron 1 tab 12/27/17 10:00 01/07/18 10:15 Vitamins (Sjr) - PO 1 tab DAILY PATRICIA Administration Pseudoephedrine/Triprolidine 1 combo 12/26/17 13:48 Actifed - PO TID PRN NASAL CONGESTION Thiamine HCl 100 mg 12/26/17 22:00 01/07/18 21:44 Vitamin B1 - PO 100 mg HS PATIRCIA Administration Trazodone HCl 100 mg 12/29/17 22:00 01/07/18 21:44 Desyrel - PO 100 mg HS PATRICIA Administration Current Side Effect: No Lab tests ordered: Yes Lab tests reviewed: Yes Provider note:: Patient has completed this program today. 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 Told designer/writer that from his participation in this program, he has learned the importance of making meetings and have a sponsor. He responded well to Trazadone 100 mg po HS. Script for 30 days supply of medication is electronically transmitted to [facility] at [address] [place] [address]. He is stable for discharge today Total face to face time:: 35 Mental Status Exam - Mental Status Exam Alert and Oriented to: Time, Place, Person Cognitive Function: Fair Patient Appearance: Well Groomed Mood: Hopeful, Euthymic Affect: Appropriate Patient Behavior: Cooperative Speech Pattern: Clear Voice Loudness: Normal Thought Process: Intact, Goal Oriented Thought Disorder: Not Present Hallucinations: Denies Suicidal Ideation: Denies Homicidal Ideation: Denies Insight/Judgement: Fair Sleep: Fair Appetite: Good Muscle strength/Tone: Normal Gait/Station: Normal Psychiatric Treatment Plan - Problem List (1) Alcohol dependence Current Visit: Yes (2) Nicotine dependence Current Visit: Yes Qualifiers: Nicotine product type: cigarettes Substance use status: in withdrawal Qualified Code(s): F17.213 - Nicotine dependence, cigarettes, with withdrawal (3) Alcohol-induced sleep disorder Current Visit: Yes Initial treatment plan: Patient is discharged today and referred to [facility] in [place] for room service manager residential treatment
[2018-01-08 06:56] VITALS: BP 105/65; PULSE 69; TEMP 97.9
== END 2018-01-08 08:45 | disposition home or self-care (01) | DRG 58 ==
LOC: YASAS 12:56 → Y3W 12:57
PROVIDERS: ADMIT Psychiatry & Neurology Psychiatry; ATTEND Psychiatry & Neurology Psychiatry
PROC: HZ42ZZZ Group Counseling for Substance Abuse Treatment, Cognitive-Behavioral (ICD-10-PCS; principal; 2017-12-26)
DX: F10.282 Alcohol dependence with alcohol-induced sleep disorder (principal); F17.210 Nicotine dependence, cigarettes, uncomplicated; G47.00 Insomnia, unspecified; R21 Rash and other nonspecific skin eruption; Z59.0 Homelessness
CPT/HCPCS: 82140

== ENCOUNTER 2018-12-10 10:17 | Inpatient (IN) | payer OTHER ==
[2018-12-10 11:28] VITALS: BMI 19.8
--- NOTE | 2018-12-10 12:34 | HP ---
CIWA Score Nausea/Vomitin Muscle Tremors: 3 Anxiety: 3 Agitation: 3 Paroxysmal Sweats: 1-Minimal Palms Moist Orientation: 0-Oriented Tacttile Disturbances: 1-Very Mild Itch/Numbness Auditory Disturbances: 0-None Visual Disturbances: 0-None Headache: 2-Mild CIWA-Ar Total Score: 15 - Admission Criteria OASAS Guidelines: Admission for Medically Managed Detox: Requires at least one of the followin. CIWA greater than 12 2. Seizures within the past 24 hours 3. Delirium tremens within the past 24 hours 4. Hallucinations within the past 24 hours 5. Acute intervention needed for co occurring medical disorder 6. Acute intervention needed for co occurring psychiatric disorder 7. Severe withdrawal that cannot be handled at a lower level of care (continued vomiting, continued diarrhea, abnormal vital signs) requiring intravenous medication and/or fluids 8. Admission ROS S - HPI Chief Complaint: i need help to stop srinking alcohol Allergies/Adverse Reactions: Allergies Allergy/AdvReac Type Severity Reaction Status Date / Time No Known Allergies Allergy Verified 12/10/18 11:22 History of Present Illness: this 48 years old male with alcohol dependence,seeking help to stop drinking, seen in [facility], [place], operated by [facility] last night receiving iv and medication. multiple admissions in detox and rehab last [facility] 12/22/18 to 12/26/17 rehab 12/26/17 to 01/08/18 alcohol related seizure i 2014 live [facility] nicotine dependence 1 pack/day,would like to have nicotine patch weight loss insomnia longest period of sobriety 10 years from 2001 to 2011 living in the sn[place] Exam Limitations: No Limitations - Ebola screening Have you traveled outside of the country in the last 21 days: No (N) Have you had contact with anyone from an Ebola affected area: No Do you have a fever: No - Review of Systems Constitutional: Loss of Appetite, Malaise, Night Sweats, Changes in sleep, Weakness, Unintentional Wgt. Loss EENT: reports: Nose Congestion Respiratory: reports: No Symptoms reported Cardiac: reports: No Symptoms Reported GI: reports: Nausea, Poor Appetite, Abdominal cramping : reports: No Symptoms Reported Musculoskeletal: reports: Back Pain, Muscle Pain Integumentary: reports: Dryness Neuro: reports: Headache, Tremors Endocrine: reports: No Symptoms Reported Hematology: reports: No Symptoms Reported Psychiatric: reports: No Sypmtoms Reported, Judgement Intact, Mood/Affect Appropiate, Orientated x3, other Other Systems: Reviewed and Negative Patient History - Patient Medical History Hx Anemia: No Hx Asthma: No Hx Chronic Obstructive Pulmonary Disease (COPD): No Hx Cancer: No Hx Cardiac Disorders: No Hx Congestive Heart Failure: No Hx Hypertension: No Hx Hypercholesterolemia: No Hx Pacemaker: No HX Cerebrovascular Accident: No Hx Seizures: No Hx Dementia: No Hx Diabetes: No Hx Gastrointestinal Disorders: No Hx Liver Disease: No Hx Genitourinary Disorders: No Hx Sexually Transmitted Disorders: No Hx Renal Disease (ESRD): No Hx Thyroid Disease: No Hx Human Immunodeficiency Virus (HIV): No (last 12/12 negative) Hx Hepatitis C: No Hx Depression: Yes (no medication) Hx Suicide Attempt: No Hx Bipolar Disorder: No Hx Schizophrenia: No Other Medical History: no suicidal,no homicidal - Patient Surgical History Past Surgical History: Yes Hx Neurologic Surgery: No Hx Cataract Extraction: No Hx Cardiac Surgery: No Hx Lung Surgery: No Hx Breast Surgery: No Hx Breast Biopsy: No Hx Abdominal Surgery: No Hx Appendectomy: No Hx Cholecystectomy: No Hx Genitourinary Surgery: No Hx Section: No Hx Orthopedic Surgery: No Other Surgical History: INGUINAL (L) HERNIA REPAIR LAST 2013 Anesthesia Reaction: No - PPD History Previous Implant?: Yes Documented Results: Negative w/proof Date: 12/24/17 Results: 0 MM PPD to be Administered?: No - Smoking Cessation Smoking history: Current some day smoker Have you smoked in the past 12 months: Yes Aproximately how many cigarettes per day: 10 Cigars Per Day: 0 Hx Chewing Tobacco Use: No Initiated information on smoking cessation: Yes 'Breaking Loose' booklet given: 12/10/18 - Substance & Tx. History Hx Alcohol Use: Yes Hx Substance Use: No Substance Use Type: Alcohol Hx Substance Use Treatment: Yes ([facility] 12/02/17 to 12/26/17,rehab 12/26/17 to 01/08) - Substances abused Alcohol Substance route: Oral Frequency: Daily Amount used: 6 pack of beer 24oz and pint of vodka Age of first use: 11 Date of last use: 12/10/18 Family Disease History - Family Disease History Family History: Denies Admission Physical Exam BHS - Vital Signs Vital Signs: Vital Signs - 24 hr 12/10/18 11:21 Temperature 98.0 F Pulse Rate 99 H Respiratory 18 Rate Blood Pressure 149/90 - Physical General Appearance: Yes: Moderate Distress, Tremorous, Irritable, Sweating, Anxious HEENTM: Yes: Normal ENT Inspection, WILLA, Pharynx Normal Respiratory: Yes: Within Normal Limits, Lungs Clear, Normal Breath Sounds Neck: Yes: Within Normal Limits, Supple, Trachea in good position Breast: Yes: Within Normal Limits Cardiology: Yes: Within Normal Limits, Regular Rhythm, Regular Rate, S1, S2 Abdominal: Yes: Within Normal Limits, Normal Bowel Sounds, Non Tender, Soft, Surgical Scar Genitourinary: Yes: Within Normal Limits Back: Yes: Muscle Spasm Musculoskeletal: Yes: full range of Motion, Back pain, Muscle Pain Extremities: Yes: Tremors Neurological: Yes: 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 intact, Alert, Motor Strength 5/5 Integumentary: Yes: Dry, Other (abrasion in both hands) Lymphatic: Yes: Within Normal Limits - Diagnostic (1) Alcohol dependence with uncomplicated withdrawal Current Visit: Yes Status: Acute (2) History of syphilis Current Visit: Yes Status: Acute (3) Insomnia Current Visit: No Status: Acute (4) Nicotine dependence Current Visit: Yes Status: Chronic Qualifiers: Nicotine product type: cigarettes Substance use status: in withdrawal Qualified Code(s): F17.213 - Nicotine dependence, cigarettes, with withdrawal (5) Homeless Current Visit: No Status: Chronic (6) Insomnia secondary to depression with anxiety Current Visit: Yes Status: Acute (7) Abrasion of hand, right Current Visit: Yes Status: Acute (8) Weight loss Current Visit: Yes Status: Acute (9) Alcohol related seizure Current Visit: Yes Status: Acute Cleared for Admission [facility] - Detox or Rehab [facility] Level of Care: Medically Managed Detox Regimen/Protocol: Librium Breathalyzer - Breathalyzer Breathalyzer: 0 Urine Drug Screen - Test Device Lot number: [id number] Expiration date: 09/24/20 - Control Is test valid?: Yes - Results Drug screen NEGATIVE: No Urine drug screen results: BZO-Benzodiazepines Inpatient Rehab Admission - Rehab Decision to Admit Inpatient rehab admission?: No
[2018-12-10] MEDS ORDERED: BISMUTH SUBSALICYLATE 524 MG/30 ML UD PO PRN (12:44)
[2018-12-10] MEDS ORDERED: MAGNESIUM CITRATE 300 ML BOTTLE PO PRN (12:44)
[2018-12-10] MEDS ORDERED: MAGNESIUM HYDROX 2400MG/30ML ORAL SUSPENSION 30 ML CUP PO PRN (12:44)
[2018-12-10] MEDS ORDERED: IBUPROFEN 400 MG TABLET (FP) PO PRN (12:44)
[2018-12-10] MEDS ORDERED: METHOCARBAMOL 500 MG TABLET PO PRN (12:44)
[2018-12-10] MEDS ORDERED: hydrOXYzine PAMOATE 25 MG CAPSULE (FP) PO PRN (12:44)
[2018-12-10] MEDS ORDERED: MAG HYDROX/AL HYDROX/SIMETH 30 ML UNIT-DOSE CUP PO PRN (12:44)
[2018-12-10] MEDS ORDERED: ACETAMINOPHEN 325 MG TABLET (FP) PO PRN (12:44)
[2018-12-10] MEDS ORDERED: MENTHOL/PHENOL 1 EACH UD MM PRN (12:44)
[2018-12-10] MEDS: chlordiazePOXIDE HCL 25 MG CAPSULE PO PRN (14:17)
[2018-12-10] MEDS: NICOTINE 21 MG/24 HOURS TOPICAL PATCH TD SCH (14:17)
[2018-12-10 15:22] LABS: ALBUMIN 3.9 g/dl (3.4-5.0); BILIRUBIN,TOTAL 1.5 mg/dL (0.2-1); BLOOD UREA NITROGEN 4.8 mg/dL (7-18); CALCIUM 8.8 mg/dL (8.5-10.1); CREATININE 0.7 mg/dL (0.55-1.3); POTASSIUM 3.8 mmol/L (3.5-5.1); TOT PROT 7.1 g/dl (6.4-8.2)
[2018-12-10 15:24] LABS: HEMATOCRIT 37.7 % (35.4-49); HEMOGLOBIN 12.9 GM/dL (11.7-16.9); MCH 33.9 pg (25.7-33.7); MCHC 34.3 g/dl (32.0-35.9); MEAN CELL VOLUME 98.9 fl (80-96); MEAN PLT VOLUME 9.1 fl (7.5-11.1); PLATELET COUNT 193 K/MM3 (134-434); RBC 3.81 M/mm3 (4.00-5.60); WHITE BLOOD COUNT 6.5 K/mm3 (4.0-10.0)
--- NOTE | 2018-12-10 17:06 | CONSULT ---
[facility] Psychiatric Consult - Data Date of interview: 12/10/18 Admission source: [facility] Identifying data: Readmission to [facility] for this 48 y/o male, self- referred for detoxification treatment (alcohol withdrawal). 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 Substance Abuse History: Confirmed by patient. Details in current [facility] report as follows : Smoking history: Current some day smoker. Have you smoked in the past 12 months: Yes. Aproximately how many cigarettes per day: 10. Cigars Per Day: 0. Hx Chewing Tobacco Use: No. Initiated information on smoking cessation : Yes. 'Breaking Loose' booklet given: 12/10/18. - Substance & Tx. History. Hx Alcohol Use: Yes. Hx Substance Use: No. Substance Use Type: Alcohol. Hx Substance Use Treatment: Yes ([facility] 12/02/17 to 12/26/17,rehab 12/26/17 to 01/08/18 ). - Substances abused. Alcohol. Substance route: Oral. Frequency: Daily. Amount used: 6 pack of beer 24oz and pint of vodka. Age of first use: 11. Date of last use: 12/10/18 Medical History: Remarkable for history of left inguinal herniorraphy. Psychiatric History: In thius interview, the patient denies history of psychiatric hospitalizations, suicide attempts or contact with psychiatric OPD care providers. Not concordant with statements made at a preveious encounter with this medical underwriter, as evidenced in the following : " history of psychiatric hospitalizations aroung age 12-14. Names of facilities not recalled. Initialled diagnosed with ADHD and treated with psychostimulants. Dropped out of psychiatric care during his adolescence. Never re-admitted to a mental institution, as per report. No contact with psychiatrists. Mr Madrigal denies histroy of suicide attempts." End of imported note. Physical/Sexual Abuse/Trauma History: Patient denies. Additional Comment: Urine drug screen results: BZO-Benzodiazepines. Noted. Mental Status Exam - Mental Status Exam Alert and Oriented to: Time, Place, Person Cognitive Function: Grossly Intact Patient Appearance: Unkempt, Disheveled Mood: Withdrawn Affect: Mood Congruent, Normal Range Patient Behavior: Cooperative Speech Pattern: Clear, Appropriate Voice Loudness: Normal Thought Process: Goal Oriented Thought Disorder: Not Present Hallucinations: Denies Suicidal Ideation: Denies Homicidal Ideation: Denies Insight/Judgement: Poor Sleep: Well Appetite: Good Muscle strength/Tone: Normal Gait/Station: Normal Psychiatric Findings - Problem List ([place] 1, 2,3) (1) Alcohol dependence with uncomplicated withdrawal Status: Acute (2) Nicotine dependence Status: Acute Qualifiers: Nicotine product type: cigarettes Substance use status: in withdrawal Qualified Code(s): F17.213 - Nicotine dependence, cigarettes, with withdrawal - Initial Treatment Plan Initial Treatment Plan: Psychoeducation. Sleep hygiene. Detoxification. Observation.
[2018-12-10] MEDS: chlordiazePOXIDE HCL 25 MG CAPSULE PO SCH ×2 (17:24→22:03)
[2018-12-10] MEDS: THIAMINE HCL 100 MG TABLET (FP) PO SCH (22:03)
[2018-12-11] MEDS: chlordiazePOXIDE HCL 25 MG CAPSULE PO SCH ×4 (06:11→22:06)
[2018-12-11] MEDS: NICOTINE 21 MG/24 HOURS TOPICAL PATCH TD SCH (10:19)
[2018-12-11] MEDS: PRENATAL VITAMINS W/ FOLIC ACID TABLET (FP) PO SCH (10:19)
[2018-12-11] MEDS ORDERED: ONDANSETRON *ODT* 4 MG TABLET SL PRN (13:23)
[2018-12-11] MEDS: chlordiazePOXIDE HCL 25 MG CAPSULE PO PRN (15:20)
--- NOTE | 2018-12-11 15:23 | PN ---
S CIWA - CIWA Score Nausea/Vomitin Muscle Tremors: 3 Anxiety: 3 Agitation: 1-Slight > Activity Paroxysmal Sweats: No Perspiration Orientation: 0-Oriented Tacttile Disturbances: 0-None Auditory Disturbances: 0-None Visual Disturbances: 2-Mild Sensitivity Headache: 3-Moderate CIWA-Ar Total Score: 15 S Progress Note (SOAP) Subjective: H/A, Tremors, Diarrhea, Nausea. Objective: PATIENT A & O X 3, OBSERVED AMBULATING ON UNIT UNASSISTED. IN NO ACUTE DISTRESS. 12/11/18 15:21 Vital Signs Temperature 97.8 F 12/11/18 09:55 Pulse Rate 95 H 12/11/18 09:55 Respiratory Rate 18 12/11/18 09:55 Blood Pressure 126/84 12/11/18 09:55 O2 Sat by Pulse Oximetry (%) Laboratory Tests 12/10/18 12/10/18 12/10/18 12:50 12:50 12:50 WBC 6.5 RBC 3.81 L Hgb 12.9 Hct 37.7 MCV 98.9 H MCH 33.9 H MCHC 34.3 RDW 14.0 Plt Count 193 MPV 9.1 Sodium 140 Potassium 3.8 Chloride 104 Carbon Dioxide 24 Anion Gap 12 BUN 4.8 L Creatinine 0.7 Est GFR (CKD-EPI)AfAm 127.53 Est GFR (CKD-EPI)NonAf 110.04 Random Glucose 82 Calcium 8.8 Total Bilirubin 1.5 H AST 39 H ALT 27 Alkaline Phosphatase 96 Total Protein 7.1 Albumin 3.9 HIV 1&2 Antibody Screen Cancelled HIV P24 Antigen Cancelled LABS NOTED. RESULTS OF DETOX ADMISSION RPR AND OF HIV AB TESTS PENDING. 12/11/18 15:22 Assessment: 12/11/18 15:21 WITHDRAWAL SYMPTOMS. HYPERBILIRUBINEMIA. Plan: CONTINUE DETOX. INCREASE DAILY PO WATER INTAKE. PRN PEPTO-BISMOL PO FOR DIARRHEA. PRN ZOFRAN SL FOR NAUSEA.
[2018-12-11] MEDS: THIAMINE HCL 100 MG TABLET (FP) PO SCH (22:06)
[2018-12-12] MEDS: chlordiazePOXIDE HCL 25 MG CAPSULE PO SCH ×4 (05:47→22:30)
[2018-12-12 10:12] LABS: RPR REACTIVE 1:2 (NONREACTIVE)
[2018-12-12 10:14] LABS: TREPONEMA ANTIBODY PREVIOUSLY REACTIVE (NONREACTIVE)
[2018-12-12] MEDS: NICOTINE 21 MG/24 HOURS TOPICAL PATCH TD SCH (10:27)
[2018-12-12] MEDS: PRENATAL VITAMINS W/ FOLIC ACID TABLET (FP) PO SCH (10:27)
--- NOTE | 2018-12-12 11:18 | PN ---
S CIWA - CIWA Score Nausea/Vomitin-Mild Nausea/No Vomiting Muscle Tremors: 4-Moderate,w/Arms Extend Anxiety: 3 Agitation: 3 Paroxysmal Sweats: 2 Orientation: 0-Oriented Tacttile Disturbances: 0-None Auditory Disturbances: 0-None Visual Disturbances: 0-None Headache: 0-None Present CIWA-Ar Total Score: 13 S Progress Note (SOAP) Subjective: 48 years old male admitted on 12/10/18 for acute alcohol withdrawal sx management doing well with librium detox regimen less tremor resting on bed feeling tired resting on bed Objective: 12/12/18 11:22 Vital Signs Temperature 98.2 F 12/12/18 09:36 Pulse Rate 76 12/12/18 09:36 Respiratory Rate 18 12/12/18 09:36 Blood Pressure 98/67 12/12/18 09:36 O2 Sat by Pulse Oximetry (%) Laboratory Last Values WBC 6.5 K/mm3 (4.0-10.0) 12/10/18 12:50 RBC 3.81 M/mm3 (4.00-5.60) L 12/10/18 12:50 Hgb 12.9 GM/dL (11.7-16.9) 12/10/18 12:50 Hct 37.7 % (35.4-49) 12/10/18 12:50 MCV 98.9 fl (80-96) H 12/10/18 12:50 MCH 33.9 pg (25.7-33.7) H 12/10/18 12:50 MCHC 34.3 g/dl (32.0-35.9) 12/10/18 12:50 RDW 14.0 % (11.9-15.9) 12/10/18 12:50 Plt Count 193 K/MM3 (134-434) 12/10/18 12:50 MPV 9.1 fl (7.5-11.1) 12/10/18 12:50 Sodium 140 mmol/L (136-145) 12/10/18 12:50 Potassium 3.8 mmol/L (3.5-5.1) 12/10/18 12:50 Chloride 104 mmol/L (98-107) 12/10/18 12:50 Carbon Dioxide 24 mmol/L (21-32) 12/10/18 12:50 Anion Gap 12 MMOL/L (8-16) 12/10/18 12:50 BUN 4.8 mg/dL (7-18) L 12/10/18 12:50 Creatinine 0.7 mg/dL (0.55-1.3) 12/10/18 12:50 Est GFR (CKD-EPI)AfAm 127.53 12/10/18 12:50 Est GFR (CKD-EPI)NonAf 110.04 12/10/18 12:50 Random Glucose 82 mg/dL (74-106) 12/10/18 12:50 Calcium 8.8 mg/dL (8.5-10.1) 12/10/18 12:50 Total Bilirubin 1.5 mg/dL (0.2-1) H 12/10/18 12:50 AST 39 U/L (15-37) H 12/10/18 12:50 ALT 27 U/L (13-61) 12/10/18 12:50 Alkaline Phosphatase 96 U/L (45-117) 12/10/18 12:50 Total Protein 7.1 g/dl (6.4-8.2) 12/10/18 12:50 Albumin 3.9 g/dl (3.4-5.0) 12/10/18 12:50 RPR Titer Reactive 1:2 (NONREACTIVE) H 12/11/18 07:40 T.pallidum Ab (MHA) Previously reactive (NONREACTIVE) 12/11/18 07:40 HIV 1&2 Ag/Ab, 4th Gen Non reactive (Non Reactive) 12/11/18 09:00 HIV 1&2 Antibody Screen Cancelled 12/10/18 12:50 HIV P24 Antigen Cancelled 12/10/18 12:50 lab noted Assessment: 12/12/18 11:23 alcohol withdrawal sx alert oriented x 3 speech clearly Plan: continue libirum detox regimen
[2018-12-12] MEDS: THIAMINE HCL 100 MG TABLET (FP) PO SCH (21:37)
[2018-12-12] MEDS: MELATONIN 5 MG TABLETS PO PRN (21:37)
[2018-12-13] MEDS ORDERED: chlordiazePOXIDE HCL 10 MG CAPSULE PO PRN
[2018-12-13] MEDS: chlordiazePOXIDE HCL 10 MG CAPSULE PO SCH ×4 (05:21→22:05)
[2018-12-13] MEDS: PRENATAL VITAMINS W/ FOLIC ACID TABLET (FP) PO SCH (10:35)
[2018-12-13] MEDS: NICOTINE 21 MG/24 HOURS TOPICAL PATCH TD SCH (10:36)
--- NOTE | 2018-12-13 15:17 | PN ---
S CIWA - CIWA Score Nausea/Vomitin Muscle Tremors: 3 Anxiety: 3 Agitation: 0-Normal Activity Paroxysmal Sweats: 1-Minimal Palms Moist Orientation: 0-Oriented Tacttile Disturbances: 1-Very Mild Itch/Numbness Auditory Disturbances: 0-None Visual Disturbances: 0-None Headache: 0-None Present CIWA-Ar Total Score: 10 BHS Progress Note (SOAP) Subjective: Nausea, Tremors, Anxious, Poor Appetite. Objective: PATIENT A & O X 3, OBSERVED AMBULATING ON UNIT UNASSISTED. IN NO ACUTE DISTRESS. 12/13/18 15:14 Vital Signs Temperature 97.2 F L 12/13/18 13:32 Pulse Rate 77 12/13/18 13:32 Respiratory Rate 16 12/13/18 13:32 Blood Pressure 95/65 12/13/18 13:32 O2 Sat by Pulse Oximetry (%) Laboratory Tests 12/10/18 12/10/18 12/10/18 12:50 12:50 12:50 WBC 6.5 RBC 3.81 L Hgb 12.9 Hct 37.7 MCV 98.9 H MCH 33.9 H MCHC 34.3 RDW 14.0 Plt Count 193 MPV 9.1 Sodium 140 Potassium 3.8 Chloride 104 Carbon Dioxide 24 Anion Gap 12 BUN 4.8 L Creatinine 0.7 Est GFR (CKD-EPI)AfAm 127.53 Est GFR (CKD-EPI)NonAf 110.04 Random Glucose 82 Calcium 8.8 Total Bilirubin 1.5 H AST 39 H ALT 27 Alkaline Phosphatase 96 Total Protein 7.1 Albumin 3.9 RPR Titer T.pallidum Ab (MHA) HIV 1&2 Ag/Ab, 4th Gen HIV 1&2 Antibody Screen Cancelled HIV P24 Antigen Cancelled 12/11/18 12/11/18 07:40 09:00 WBC RBC Hgb Hct MCV MCH MCHC RDW Plt Count MPV Sodium Potassium Chloride Carbon Dioxide Anion Gap BUN Creatinine Est GFR (CKD-EPI)AfAm Est GFR (CKD-EPI)NonAf Random Glucose Calcium Total Bilirubin AST ALT Alkaline Phosphatase Total Protein Albumin RPR Titer Reactive 1:2 H T.pallidum Ab (MHA) Previously reactive HIV 1&2 Ag/Ab, 4th Gen Non reactive HIV 1&2 Antibody Screen HIV P24 Antigen LABS NOTED. ADMISSION RPR RESULT NOTED: REACTIVE 1:2 (MHATP: PREVIOUSLY REACTIVE). PATIENT REPORTS THAT HE COMPLETED A FULL COURSE OF TREATMENT FOR SYPHILIS IN THE PAST. 12/13/18 15:15 Assessment: 12/13/18 15:15 WITHDRAWAL SYMPTOMS. REACTIVE RPR. HYPERBILIRUBINEMIA. 12/13/18 15:16 Plan: CONTINUE DETOX. ENSURE PO FOR CALORIC SUPPLEMENTATION.
[2018-12-13 16:52] LABS: PH,URINE 6.5 (5.0-8.0); URINE APPEARANCE CLEAR; URINE BILIRUBIN 1+ (NEGATIVE); URINE COLOR DK YELLOW; URINE GLUCOSE (UA) NEGATIVE (NEGATIVE); URINE KETONE 1+ (NEGATIVE); URINE LEUK ESTERASE NEGATIVE (NEGATIVE); URINE NITRITE NEGATIVE (NEGATIVE); URINE PROTEIN TRACE (NEGATIVE)
[2018-12-13] MEDS: THIAMINE HCL 100 MG TABLET (FP) PO SCH (22:05)
[2018-12-13] MEDS: MELATONIN 5 MG TABLETS PO PRN (22:05)
[2018-12-14] MEDS: chlordiazePOXIDE HCL 10 MG CAPSULE PO SCH ×3 (05:42→17:28)
[2018-12-14] MEDS: ACETAMINOPHEN 325 MG TABLET (FP) PO PRN ×2 (10:50→16:46)
[2018-12-14] MEDS: PRENATAL VITAMINS W/ FOLIC ACID TABLET (FP) PO SCH (10:50)
[2018-12-14] MEDS: NICOTINE 21 MG/24 HOURS TOPICAL PATCH TD SCH (10:51)
--- NOTE | 2018-12-14 13:54 | PN ---
[facility] CIWA - CIWA Score Nausea/Vomitin-No Nausea/No Vomiting Muscle Tremors: 2 Anxiety: 1-Mildly Anxious Agitation: 2 Paroxysmal Sweats: 1-Minimal Palms Moist Orientation: 0-Oriented Tacttile Disturbances: 0-None Auditory Disturbances: 0-None Visual Disturbances: 0-None Headache: 0-None Present CIWA-Ar Total Score: 6 S Progress Note (SOAP) Subjective: doing well with librium detox regimen ambulating on hallway social with peers in day room discuss aftercare with staff prefers [facility] Objective: 12/14/18 13:55 Vital Signs Temperature 97.2 F L 12/14/18 13:13 Pulse Rate 75 12/14/18 13:13 Respiratory Rate 16 12/14/18 13:13 Blood Pressure 109/80 12/14/18 13:13 O2 Sat by Pulse Oximetry (%) Laboratory Last Values WBC 6.5 K/mm3 (4.0-10.0) 12/10/18 12:50 RBC 3.81 M/mm3 (4.00-5.60) L 12/10/18 12:50 Hgb 12.9 GM/dL (11.7-16.9) 12/10/18 12:50 Hct 37.7 % (35.4-49) 12/10/18 12:50 MCV 98.9 fl (80-96) H 12/10/18 12:50 MCH 33.9 pg (25.7-33.7) H 12/10/18 12:50 MCHC 34.3 g/dl (32.0-35.9) 12/10/18 12:50 RDW 14.0 % (11.9-15.9) 12/10/18 12:50 Plt Count 193 K/MM3 (134-434) 12/10/18 12:50 MPV 9.1 fl (7.5-11.1) 12/10/18 12:50 Sodium 140 mmol/L (136-145) 12/10/18 12:50 Potassium 3.8 mmol/L (3.5-5.1) 12/10/18 12:50 Chloride 104 mmol/L (98-107) 12/10/18 12:50 Carbon Dioxide 24 mmol/L (21-32) 12/10/18 12:50 Anion Gap 12 MMOL/L (8-16) 12/10/18 12:50 BUN 4.8 mg/dL (7-18) L 12/10/18 12:50 Creatinine 0.7 mg/dL (0.55-1.3) 12/10/18 12:50 Est GFR (CKD-EPI)AfAm 127.53 12/10/18 12:50 Est GFR (CKD-EPI)NonAf 110.04 12/10/18 12:50 Random Glucose 82 mg/dL (74-106) 12/10/18 12:50 Calcium 8.8 mg/dL (8.5-10.1) 12/10/18 12:50 Total Bilirubin 1.5 mg/dL (0.2-1) H 12/10/18 12:50 AST 39 U/L (15-37) H 12/10/18 12:50 ALT 27 U/L (13-61) 12/10/18 12:50 Alkaline Phosphatase 96 U/L (45-117) 12/10/18 12:50 Total Protein 7.1 g/dl (6.4-8.2) 12/10/18 12:50 Albumin 3.9 g/dl (3.4-5.0) 12/10/18 12:50 Urine Color Dk yellow 12/13/18 12:30 Urine Appearance Clear 12/13/18 12:30 Urine pH 6.5 (5.0-8.0) D 12/13/18 12:30 Ur Specific [place] 1.036 (1.010-1.035) H 12/13/18 12:30 Urine Protein Trace (NEGATIVE) 12/13/18 12:30 Urine Glucose (UA) Negative (NEGATIVE) 12/13/18 12:30 Urine Ketones 1+ (NEGATIVE) H 12/13/18 12:30 Urine Blood Negative (NEGATIVE) 12/13/18 12:30 Urine Nitrite Negative (NEGATIVE) 12/13/18 12:30 Urine Bilirubin 1+ (NEGATIVE) H 12/13/18 12:30 Urine Urobilinogen 1.0 mg/dL (0.2-1.0) 12/13/18 12:30 Ur Leukocyte Esterase Negative (NEGATIVE) 12/13/18 12:30 RPR Titer Reactive 1:2 (NONREACTIVE) H 12/11/18 07:40 T.pallidum Ab (MHA) Previously reactive (NONREACTIVE) 12/11/18 07:40 HIV 1&2 Ag/Ab, 4th Gen Non reactive (Non Reactive) 12/11/18 09:00 HIV 1&2 Antibody Screen Cancelled 12/10/18 12:50 HIV P24 Antigen Cancelled 12/10/18 12:50 lab noted history of syphilis completed treatment Assessment: 12/14/18 13:57 alcohol withdrawal sx alert oriented x 3 steady speech clearly and coherently tolerate food and fluid well Plan: continue librium detox regimen
[2018-12-14] MEDS: THIAMINE HCL 100 MG TABLET (FP) PO SCH (22:05)
[2018-12-14] MEDS: MELATONIN 5 MG TABLETS PO PRN (22:05)
[2018-12-15] MEDS ORDERED: chlordiazePOXIDE HCL 10 MG CAPSULE PO ONE (05:00)
[2018-12-15] MEDS: PRENATAL VITAMINS W/ FOLIC ACID TABLET (FP) PO SCH (10:58)
[2018-12-15] MEDS: NICOTINE 21 MG/24 HOURS TOPICAL PATCH TD SCH (10:58)
[2018-12-15 13:14] VITALS: BP 102/69; PULSE 67; TEMP 96.7
--- NOTE | 2018-12-15 14:19 | DS ---
[facility] Detox Discharge Summary Admission Date: 12/10/18 Discharge Date: 12/15/18 - History Present History: Alcohol Dependence Additional Comments: 48 years old male admitted on 12/10/18 for acute alcohol withdrawal sx management doing well with librium detox regimen no complication through out the detox stay seen by psychiatrist progress note appreciated patient is alert oriented x 3 speech clearly coherently steady gait denies dizziness no shortness of breath no wheezing - Physical Exam Results Vital Signs: Vital Signs Temperature 96.7 F L 12/15/18 13:13 Pulse Rate 67 12/15/18 13:13 Respiratory Rate 18 12/15/18 13:13 Blood Pressure 102/69 12/15/18 13:13 O2 Sat by Pulse Oximetry (%) Pertinent Admission Physical Exam Findings: alcohol withdrawal sx Laboratory Last Values WBC 6.5 K/mm3 (4.0-10.0) 12/10/18 12:50 RBC 3.81 M/mm3 (4.00-5.60) L 12/10/18 12:50 Hgb 12.9 GM/dL (11.7-16.9) 12/10/18 12:50 Hct 37.7 % (35.4-49) 12/10/18 12:50 MCV 98.9 fl (80-96) H 12/10/18 12:50 MCH 33.9 pg (25.7-33.7) H 12/10/18 12:50 MCHC 34.3 g/dl (32.0-35.9) 12/10/18 12:50 RDW 14.0 % (11.9-15.9) 12/10/18 12:50 Plt Count 193 K/MM3 (134-434) 12/10/18 12:50 MPV 9.1 fl (7.5-11.1) 12/10/18 12:50 Sodium 140 mmol/L (136-145) 12/10/18 12:50 Potassium 3.8 mmol/L (3.5-5.1) 12/10/18 12:50 Chloride 104 mmol/L (98-107) 12/10/18 12:50 Carbon Dioxide 24 mmol/L (21-32) 12/10/18 12:50 Anion Gap 12 MMOL/L (8-16) 12/10/18 12:50 BUN 4.8 mg/dL (7-18) L 12/10/18 12:50 Creatinine 0.7 mg/dL (0.55-1.3) 12/10/18 12:50 Est GFR (CKD-EPI)AfAm 127.53 12/10/18 12:50 Est GFR (CKD-EPI)NonAf 110.04 12/10/18 12:50 Random Glucose 82 mg/dL (74-106) 12/10/18 12:50 Calcium 8.8 mg/dL (8.5-10.1) 12/10/18 12:50 Total Bilirubin 1.5 mg/dL (0.2-1) H 12/10/18 12:50 AST 39 U/L (15-37) H 12/10/18 12:50 ALT 27 U/L (13-61) 12/10/18 12:50 Alkaline Phosphatase 96 U/L (45-117) 12/10/18 12:50 Total Protein 7.1 g/dl (6.4-8.2) 12/10/18 12:50 Albumin 3.9 g/dl (3.4-5.0) 12/10/18 12:50 Urine Color Dk yellow 12/13/18 12:30 Urine Appearance Clear 12/13/18 12:30 Urine pH 6.5 (5.0-8.0) D 12/13/18 12:30 Ur Specific [place] 1.036 (1.010-1.035) H 12/13/18 12:30 Urine Protein Trace (NEGATIVE) 12/13/18 12:30 Urine Glucose (UA) Negative (NEGATIVE) 12/13/18 12:30 Urine Ketones 1+ (NEGATIVE) H 12/13/18 12:30 Urine Blood Negative (NEGATIVE) 12/13/18 12:30 Urine Nitrite Negative (NEGATIVE) 12/13/18 12:30 Urine Bilirubin 1+ (NEGATIVE) H 12/13/18 12:30 Urine Urobilinogen 1.0 mg/dL (0.2-1.0) 12/13/18 12:30 Ur Leukocyte Esterase Negative (NEGATIVE) 12/13/18 12:30 RPR Titer Reactive 1:2 (NONREACTIVE) H 12/11/18 07:40 T.pallidum Ab (MHA) Previously reactive (NONREACTIVE) 12/11/18 07:40 HIV 1&2 Ag/Ab, 4th Gen Non reactive (Non Reactive) 12/11/18 09:00 HIV 1&2 Antibody Screen Cancelled 12/10/18 12:50 HIV P24 Antigen Cancelled 12/10/18 12:50 lab noted - Treatment Hospital Course: Detox Protocol Followed, Detoxed Safely, Responded well, Discharged Condition Good, Rehab Referral Accepted Patient [facility] - Diagnosis (1) Alcohol dependence with uncomplicated withdrawal Current Visit: Yes Status: Acute (2) Nicotine dependence Current Visit: Yes Status: Acute Qualifiers: Nicotine product type: cigarettes Substance use status: in withdrawal Qualified Code(s): F17.213 - Nicotine dependence, cigarettes, with withdrawal (3) Substance induced mood disorder Current Visit: Yes Status: Suspected (4) Syphilis Current Visit: Yes Status: Chronic (5) Weight loss Current Visit: Yes Status: Acute - AMA Did Patient Leave Against Medical Advice: No CIWA Score - CIWA Score Nausea/Vomitin-No Nausea/No Vomiting Muscle Tremors: 1-None Visible, but [place] Anxiety: 0-No Anxiety, at Ease Agitation: 1-Slight > Activity Paroxysmal Sweats: No Perspiration Orientation: 0-Oriented Tacttile Disturbances: 0-None Auditory Disturbances: 0-None Visual Disturbances: 0-None Headache: 0-None Present CIWA-Ar Total Score: 2
== END 2018-12-15 14:44 | disposition other institution (70) | DRG 775 ==
LOC: YASAS 10:17 → Y3N 12:44
PROVIDERS: ADMIT Surgery; ATTEND Surgery
PROC: HZ2ZZZZ Detoxification Services for Substance Abuse Treatment (ICD-10-PCS; principal; 2018-12-10)
DX: F10.230 Alcohol dependence with withdrawal, uncomplicated (principal); F17.210 Nicotine dependence, cigarettes, uncomplicated; F19.24 Other psychoactive substance dependence with psychoactive substance-induced mood disorder; F51.05 Insomnia due to other mental disorder; R63.4 Abnormal weight loss; E80.6 Other disorders of bilirubin metabolism; G47.00 Insomnia, unspecified; S60.512A Abrasion of left hand, initial encounter; S60.511A Abrasion of right hand, initial encounter; X58.XXXA Exposure to other specified factors, initial encounter; Y93.9 Activity, unspecified; Y92.9 Unspecified place or not applicable; Z59.0 Homelessness
CPT/HCPCS: 36415; 80053; 81003; 85027; 86593; 86780; 87389

== ENCOUNTER 2018-12-15 14:54 | Inpatient (IN) | payer OTHER ==
--- NOTE | 2018-12-15 14:26 | HP ---
[facility] Rehab Assess/Revision - Admission History Admitted to Rehab from: [facility] Date of Admission to Rehab: 12/15/18 - Findings Detox History & Physical reviewed: Yes Concur with findings: Yes Comments/Additional Findings: transferred from detox to rehab admission as per protocol Inpatient Rehab Admission - Rehab Decision to Admit Inpatient rehab admission?: Yes - Initial Determination Are CD services needed?: Yes Free of communicable disease: Yes Not in need of hospitalization: Yes - Rehab Admission Criteria Previous failed treatment: Yes Poor recovery environment: Yes Comorbidities: Yes Lacks judgement: No Patient is meeting Inpatient Rehab admission criteria:: Yes
[~2018-12-15 14:54] MED LIST: ACETAMINOPHEN 325 MG TABLET (FP) PO PRN; LOPERAMIDE HCL 2 MG CAPSULE PO PRN; MAG HYDROX/AL HYDROX/SIMETH 30 ML UNIT-DOSE CUP PO PRN; MAGNESIUM CITRATE 300 ML BOTTLE PO PRN; MAGNESIUM HYDROX 2400MG/30ML ORAL SUSPENSION 30 ML CUP PO PRN; MENTHOL/PHENOL 1 EACH UD MM PRN; NICOTINE POLACRILEX 4 MG GUM BUC PRN; P-EPHED 60MG/TRIPROLIDI 2.5MG TABLET PO PRN; guaiFENesin 200 MG/10 ML 10 ML UNIT-DOSE CUPS PO PRN
[2018-12-15] MEDS: THIAMINE HCL 100 MG TABLET (FP) PO SCH (21:29)
[2018-12-15] MEDS ORDERED: MELATONIN 5 MG TABLETS PO PRN (22:00)
[2018-12-16] MEDS: PRENATAL VITAMINS W/ FOLIC ACID TABLET (FP) PO SCH (10:10)
[2018-12-16] MEDS: NICOTINE 21 MG/24 HOURS TOPICAL PATCH TD SCH (10:11)
[2018-12-16] MEDS: THIAMINE HCL 100 MG TABLET (FP) PO SCH (22:11)
[2018-12-17] MEDS: NICOTINE 21 MG/24 HOURS TOPICAL PATCH TD SCH (09:46)
[2018-12-17] MEDS: PRENATAL VITAMINS W/ FOLIC ACID TABLET (FP) PO SCH (09:46)
[2018-12-17] MEDS: THIAMINE HCL 100 MG TABLET (FP) PO SCH (21:37)
[2018-12-18] MEDS: PRENATAL VITAMINS W/ FOLIC ACID TABLET (FP) PO SCH (11:12)
[2018-12-18] MEDS: NICOTINE 21 MG/24 HOURS TOPICAL PATCH TD SCH (11:12)
[2018-12-18] MEDS: MELATONIN 5 MG TABLETS PO PRN (21:39)
[2018-12-18] MEDS: THIAMINE HCL 100 MG TABLET (FP) PO SCH (21:39)
[2018-12-19] MEDS: IBUPROFEN 400 MG TABLET (FP) PO PRN ×2 (09:30→22:08)
[2018-12-19] MEDS: NICOTINE 21 MG/24 HOURS TOPICAL PATCH TD SCH (09:30)
[2018-12-19] MEDS: PRENATAL VITAMINS W/ FOLIC ACID TABLET (FP) PO SCH (09:31)
[2018-12-19] MEDS: MELATONIN 5 MG TABLETS PO PRN (22:09)
[2018-12-19] MEDS: THIAMINE HCL 100 MG TABLET (FP) PO SCH (22:09)
[2018-12-20] MEDS: PRENATAL VITAMINS W/ FOLIC ACID TABLET (FP) PO SCH (10:06)
[2018-12-20] MEDS: NICOTINE 21 MG/24 HOURS TOPICAL PATCH TD SCH (10:06)
[2018-12-20] MEDS: IBUPROFEN 400 MG TABLET (FP) PO PRN (21:28)
[2018-12-20] MEDS: MELATONIN 5 MG TABLETS PO PRN (21:28)
[2018-12-20] MEDS: THIAMINE HCL 100 MG TABLET (FP) PO SCH (22:22)
[2018-12-21] MEDS: NICOTINE 21 MG/24 HOURS TOPICAL PATCH TD SCH (09:50)
[2018-12-21] MEDS: PRENATAL VITAMINS W/ FOLIC ACID TABLET (FP) PO SCH (09:50)
[2018-12-21] MEDS: MELATONIN 5 MG TABLETS PO PRN (21:29)
[2018-12-21] MEDS: THIAMINE HCL 100 MG TABLET (FP) PO SCH (21:29)
[2018-12-22] MEDS: PRENATAL VITAMINS W/ FOLIC ACID TABLET (FP) PO SCH (10:01)
[2018-12-22] MEDS: NICOTINE 21 MG/24 HOURS TOPICAL PATCH TD SCH (10:01)
[2018-12-22] MEDS: THIAMINE HCL 100 MG TABLET (FP) PO SCH (21:20)
[2018-12-22] MEDS: MELATONIN 5 MG TABLETS PO PRN (21:20)
[2018-12-23] MEDS: NICOTINE 21 MG/24 HOURS TOPICAL PATCH TD SCH (09:57)
[2018-12-23] MEDS: PRENATAL VITAMINS W/ FOLIC ACID TABLET (FP) PO SCH (09:57)
[2018-12-23] MEDS: MELATONIN 5 MG TABLETS PO PRN (21:35)
[2018-12-23] MEDS: THIAMINE HCL 100 MG TABLET (FP) PO SCH (21:35)
--- NOTE | 2018-12-24 09:36 | CONSULT ---
[facility] Psychiatric Consult - Data Date of interview: 12/24/18 Admission source: [facility] Identifying data: Patient is a 48 year old single [place] male, without children, unemployed, homeless, and is supported by [facility]. This is patient 's first admission to rehab at [facility]. Patient admitted to for alcohol dependence. Substance Abuse History: - Smoking Cessation. Smoking history: Current some day smoker. Have you smoked in the past 12 months: Yes. Aproximately how many cigarettes per day: 10. Cigars Per Day: 0. Hx Chewing Tobacco Use: No. Initiated information on smoking cessation: Yes. 'Breaking Loose' booklet given : 12/10/18. - Substance & Tx. History. Hx Alcohol Use: Yes. Hx Substance Use : No. Substance Use Type: Alcohol. Hx Substance Use Treatment: Yes ([facility] to 12/26/17,rehab 12/26/17 to 01/08/18). - Substances abused. Alcohol. Substance route: Oral. Frequency: Daily. Amount used: 6 pack of beer 24oz and pint of vodka. Age of first use: 11. Date of last use: 12/10/18 Medical History: Remarkable for history of left inguinal herniorraphy. Psychiatric History: Patient's first psychiatric contact was as an 9 year to address hyperactivity and restlessness behavior. He was diagnosed with ADHD and was treated with psychostimulants (Ritalin and then Adderall). Mr. Madrigal reports discontining treatment after three years and denies seeking psychiatric care again. He denies history of psychiatric hospitalizations and suicide attempts. Reports only seeing a psychiatrist when admitted to detox/rehab settings. At present, patient reports stable mood but is experiencing difficulty sleeping. Physical/Sexual Abuse/Trauma History: denies. Mental Status Exam - Mental Status Exam Alert and Oriented to: Time, Place, Person Cognitive Function: Good Patient Appearance: Well Groomed Mood: Euthymic Affect: Mood Congruent Patient Behavior: Cooperative Speech Pattern: Appropriate Voice Loudness: Normal Thought Process: Goal Oriented Thought Disorder: Not Present Hallucinations: Denies Suicidal Ideation: Denies Homicidal Ideation: Denies Insight/Judgement: Poor Sleep: Poorly Appetite: Fair Muscle strength/Tone: Normal Gait/Station: Normal Psychiatric Findings - Problem List ([place] 1, 2,3) (1) Alcohol dependence Current Visit: Yes Status: Chronic (2) Insomnia Current Visit: Yes Status: Acute (3) Nicotine dependence Current Visit: Yes Status: Acute Qualifiers: Nicotine product type: cigarettes Substance use status: in withdrawal Qualified Code(s): F17.213 - Nicotine dependence, cigarettes, with withdrawal - Initial Treatment Plan Initial Treatment Plan: Psychoeducation provided. Rehab in progress. Will order Trazodone 50mg HS. Patient informed of the risk of priapism. Benefits and side effects discussed. Verbal consent given.
[2018-12-24] MEDS: PRENATAL VITAMINS W/ FOLIC ACID TABLET (FP) PO SCH (09:55)
[2018-12-24] MEDS: NICOTINE 21 MG/24 HOURS TOPICAL PATCH TD SCH (09:55)
[2018-12-24] MEDS: traZODone HCL 50 MG TABLET (FP) PO SCH (21:21)
[2018-12-24] MEDS: THIAMINE HCL 100 MG TABLET (FP) PO SCH (21:21)
[2018-12-24] MEDS: MELATONIN 5 MG TABLETS PO PRN (21:22)
[2018-12-25] MEDS: NICOTINE 21 MG/24 HOURS TOPICAL PATCH TD SCH (09:36)
[2018-12-25] MEDS: PRENATAL VITAMINS W/ FOLIC ACID TABLET (FP) PO SCH (09:36)
[2018-12-25] MEDS: THIAMINE HCL 100 MG TABLET (FP) PO SCH (21:38)
[2018-12-25] MEDS: traZODone HCL 50 MG TABLET (FP) PO SCH (21:38)
[2018-12-25] MEDS: MELATONIN 5 MG TABLETS PO PRN (21:38)
[2018-12-26] MEDS: NICOTINE 21 MG/24 HOURS TOPICAL PATCH TD SCH (10:17)
[2018-12-26] MEDS: PRENATAL VITAMINS W/ FOLIC ACID TABLET (FP) PO SCH (10:17)
[2018-12-26] MEDS: THIAMINE HCL 100 MG TABLET (FP) PO SCH (21:26)
[2018-12-26] MEDS: traZODone HCL 50 MG TABLET (FP) PO SCH (21:26)
[2018-12-27] MEDS: PRENATAL VITAMINS W/ FOLIC ACID TABLET (FP) PO SCH (09:38)
[2018-12-27] MEDS: NICOTINE 21 MG/24 HOURS TOPICAL PATCH TD SCH (09:38)
[2018-12-27] MEDS: THIAMINE HCL 100 MG TABLET (FP) PO SCH (21:18)
[2018-12-27] MEDS: traZODone HCL 50 MG TABLET (FP) PO SCH (21:18)
[2018-12-28] MEDS: PRENATAL VITAMINS W/ FOLIC ACID TABLET (FP) PO SCH (09:40)
[2018-12-28] MEDS: NICOTINE 21 MG/24 HOURS TOPICAL PATCH TD SCH (09:40)
[2018-12-28] MEDS: THIAMINE HCL 100 MG TABLET (FP) PO SCH (21:37)
[2018-12-28] MEDS: traZODone HCL 50 MG TABLET (FP) PO SCH (21:38)
[2018-12-29] MEDS: PRENATAL VITAMINS W/ FOLIC ACID TABLET (FP) PO SCH (09:48)
[2018-12-29] MEDS: NICOTINE 21 MG/24 HOURS TOPICAL PATCH TD SCH (09:48)
[2018-12-29] MEDS: THIAMINE HCL 100 MG TABLET (FP) PO SCH (21:53)
[2018-12-29] MEDS: traZODone HCL 50 MG TABLET (FP) PO SCH (21:53)
[2018-12-30] MEDS: NICOTINE 21 MG/24 HOURS TOPICAL PATCH TD SCH (09:55)
[2018-12-30] MEDS: PRENATAL VITAMINS W/ FOLIC ACID TABLET (FP) PO SCH (09:55)
[2018-12-30] MEDS: THIAMINE HCL 100 MG TABLET (FP) PO SCH (21:37)
[2018-12-30] MEDS: traZODone HCL 50 MG TABLET (FP) PO SCH (21:38)
[2018-12-31] MEDS: NICOTINE 21 MG/24 HOURS TOPICAL PATCH TD SCH (10:16)
[2018-12-31] MEDS: PRENATAL VITAMINS W/ FOLIC ACID TABLET (FP) PO SCH (10:16)
[2018-12-31] MEDS: traZODone HCL 50 MG TABLET (FP) PO SCH (21:27)
[2018-12-31] MEDS: THIAMINE HCL 100 MG TABLET (FP) PO SCH (21:27)
[2019-01-01] MEDS: PRENATAL VITAMINS W/ FOLIC ACID TABLET (FP) PO SCH (09:57)
[2019-01-01] MEDS: NICOTINE 21 MG/24 HOURS TOPICAL PATCH TD SCH (09:57)
[2019-01-01] MEDS: THIAMINE HCL 100 MG TABLET (FP) PO SCH (21:17)
[2019-01-01] MEDS: traZODone HCL 50 MG TABLET (FP) PO SCH (21:18)
[2019-01-02] MEDS: NICOTINE 21 MG/24 HOURS TOPICAL PATCH TD SCH (09:36)
[2019-01-02] MEDS: PRENATAL VITAMINS W/ FOLIC ACID TABLET (FP) PO SCH (09:36)
--- NOTE | 2019-01-02 14:36 | PN ---
[facility] Progress Note Note: Patient is scheduled for discharge tomorrow. Script for 30 days supply of Trazadone 50 mg/hs will be electronically transmitted to [facility] at [address] [place], [place] [id number]
[2019-01-02] MEDS: THIAMINE HCL 100 MG TABLET (FP) PO SCH (21:24)
[2019-01-02] MEDS: traZODone HCL 50 MG TABLET (FP) PO SCH (21:24)
[2019-01-03 06:50] VITALS: BP 113/98; PULSE 109; TEMP 97.9
--- NOTE | 2019-01-03 11:05 | DS ---
[facility] Rehab Discharge Summary - [facility] Rehab Discharge Summary Admission Date: 12/15/18 Discharge Date: 01/03/19 - History Present History: Alcohol dependence - Discharge Physical Exam Vital Signs: Vital Signs Temperature 97.9 F 01/03/19 06:47 Pulse Rate 109 H 01/03/19 06:47 Respiratory Rate 20 01/03/19 06:47 Blood Pressure 113/98 01/03/19 06:47 O2 Sat by Pulse Oximetry (%) Pertinent Admission Physical Exam Findings: ROS: denies headache, alcohol cravings, sweats and anxiety PE alert and oriented x 3 skin warm and dry +perrla, eoms intact bl neck supple no jvd ext full rom, amb ad rosario - Treatment Discharge Condition: Discharge condition good Hospital Course: Patient completed discharge for ETOH dependence today. Patient states he accomplished all rehab goals, able to identify triggers and coping mechanisms, remains medically stable at time of exam and denies SI/HI. - Medication Discharge Medications: Ambulatory Orders traZODone HCL [Desyrel -] 50 mg PO HS #30 tablet 01/02/19 - Medication-Assisted Treatment (MAT) Medication-Assisted Treatment (MAT): No MAT Follow-up Referral: Aftercare arranged for [facility]. - Discharge Instructions Diet, activity, other medical instructions: Diet: as trista Activity: as trista Other medical instructions: - Diagnosis (1) Alcohol dependence Status: Chronic Qualifiers: Substance use status: uncomplicated Qualified Code(s): F10.20 - Alcohol dependence, uncomplicated - Follow-up Referral Minutes to complete discharge: 30 - AMA Did Patient Leave Against Medical Advice: No
== END 2019-01-03 09:30 | disposition home or self-care (01) | DRG 772 ==
LOC: YASAS 14:54 → Y3W 14:55
PROVIDERS: ADMIT Neuromusculoskeletal Medicine & OMM; ATTEND Neuromusculoskeletal Medicine & OMM
PROC: HZ42ZZZ Group Counseling for Substance Abuse Treatment, Cognitive-Behavioral (ICD-10-PCS; principal; 2018-12-15)
DX: F10.20 Alcohol dependence, uncomplicated (principal); F17.213 Nicotine dependence, cigarettes, with withdrawal; G47.00 Insomnia, unspecified; Z87.438 Personal history of other diseases of male genital organs; Z59.0 Homelessness
CPT/HCPCS: 71045-TC-FY